=== PATIENT | female | born 1980 | race Caucasian/White ===

== ENCOUNTER → 2016-06-08 | Outpatient (CLI) | payer OTHER ==
[2016-06-08 11:14] LABS: CH 29.5; CHCM 34.1; HCT 37.7 % (34.0-46.0); HDW 2.48; HGB 12.5 gm/dL (11.4-16.0); MCH 28.8 pg (25.0-35.0); MCHC 33.2 g/dL (31.0-37.0); Mean Platelet Volume 6.5; RBC 4.34 m/uL (3.80-5.40); RDW 14.1 % (11.5-15.5); WBC 13.1 k/uL (3.8-10.6)
[2016-06-08 11:26] LABS: ALT 28 U/L (9-52); AST 16 U/L (14-36); Blood Urea Nitrogen 4 mg/dL (7-17); Non-African American GFR(MDRD) >60 (>60 ml/min/1.73 sqM)
[2016-06-11 09:41] LABS: Mis test requested (Non-blood) TP Urine 24Hr
== END | disposition home or self-care (01) ==
LOC: LABWHC1 10:14
PROVIDERS: ATTEND Obstetrics & Gynecology
DX: O13.4 Gestational [pregnancy-induced] hypertension without significant proteinuria, complicating childbirth (principal); Z3A.00 Weeks of gestation of pregnancy not specified
CPT/HCPCS: 36415; 81050; 82565; 82570; 84156; 84450; 84460; 84520; 85027

== ENCOUNTER → 2017-03-13 | Outpatient (CLI) | payer OTHER | LOC: LABWHC1 09:18 | PROVIDERS: ATTEND Surgery | DX: E04.1 Nontoxic single thyroid nodule (principal) | CPT/HCPCS: 36415; 84439; 84443; 84481 ==

== ENCOUNTER 2017-10-25 15:04 | Observation (INO) | payer BC, OTHER ==
[2017-10-25] MEDS ORDERED: AMPICILLIN-SULBACTAM 3 GM in SODIUM CHLORIDE 0.9% 100 ML IVPB STA (16:27)
[2017-10-25] MEDS: SODIUM CHLORIDE 0.9% 500 ML IV SCH ×2 (16:38→18:38)
[2017-10-25 16:53] LABS: Basophils % (A) 0 %; Eosinophils % (A) 0 %; HCT 41.2 % (34.0-46.0); HGB 14.1 gm/dL (11.4-16.0); Lymphocytes # (A) 1.7 k/uL (1.0-4.8); Lymphocytes % (A) 9 %; MCH 29.2 pg (25.0-35.0); MCHC 34.2 g/dL (31.0-37.0); MCV 85.2 fL (80.0-100.0); Mean Platelet Volume 6.6; Monocytes # (A) 0.6 k/uL (0-1.0); Monocytes % (A) 3 %; Neutrophils # (A) 15.9 k/uL (1.3-7.7); Neutrophils % (A) 87 %; Platelet Count 343 k/uL (150-450); RBC 4.84 m/uL (3.80-5.40); RDW 13.6 % (11.5-15.5); WBC 18.4 k/uL (3.8-10.6)
[2017-10-25 16:56] LABS: Partial Thromboplastin Time 24.5 sec (22.0-30.0); Prothrombin Time 9.6 sec (9.0-12.0)
[2017-10-25 17:02] LABS: ALT 26 U/L (9-52); AST 21 U/L (14-36); Albumin 3.7 g/dL (3.5-5.0); Alkaline Phosphatase 79 U/L (38-126); Anion Gap 9 mmol/L; Blood Urea Nitrogen 9 mg/dL (7-17); Calcium 8.9 mg/dL (8.4-10.2); Carbon Dioxide 23 mmol/L (22-30); Chloride 106 mmol/L (98-107); Glucose 94 mg/dL (74-99); Potassium 3.8 mmol/L (3.5-5.1); Sodium 138 mmol/L (137-145); Total Bilirubin 0.3 mg/dL (0.2-1.3); Total Protein 6.4 g/dL (6.3-8.2)
--- NOTE | 2017-10-25 17:02 | ED ---
General Adult HPI - General Chief complaint: Recheck/Abnormal Lab/Rx Stated complaint: Sent by PCP left facial swelling Time Seen by Provider: 10/25/17 15:54 Source: patient, RN notes reviewed, old records reviewed Mode of arrival: ambulatory Limitations: no limitations - History of Present Illness Initial comments: Personal female presents in his room with facial pain and swelling of the left side of face started 4 days ago. It got acutely worse yesterday. Said this happened before with a history of parotid stones. Patient was sent over here from her doctor for further evaluation and computed tomography scan. She reports chills. No specific fever. - Related Data Home Medications Medication Instructions Recorded Confirmed Acetaminophen [Tylenol Extra 1,000 mg PO BID PRN 10/25/17 10/25/17 Strength] Allergies Allergy/AdvReac Type Severity Reaction Status Date / Time No Known Allergies Allergy Verified 10/25/17 16:12 Review of Systems ROS Statement: Those systems with pertinent positive or pertinent negative responses have been documented in the HPI. ROS Other: All systems not noted in ROS Statement are negative. Past Medical History Past Medical History: Thyroid Disorder Additional Past Medical History / Comment(s): parietal stones History of Any Multi-Drug Resistant Organisms: None Reported Past Surgical History: Section, Cholecystectomy Additional Past Surgical History / Comment(s): ectopic Past Anesthesia/Blood Transfusion Reactions: No Reported Reaction Additional Past Anesthesia/Blood Transfusion Reaction / Comment(s): No issues, has had blood transfusion previously Past Psychological History: No Psychological Hx Reported Smoking Status: Current every day smoker Past Alcohol Use History: None Reported Past Drug Use History: None Reported - Past Family History Sister(s) Family Medical History: Cancer Additional Family Medical History / Comment(s): cervical General Exam - General Exam Comments Initial Comments: 37-year-old female. Limitations: no limitations General appearance: alert, in no apparent distress Head exam: Present: atraumatic, normocephalic, normal inspection Eye exam: Present: normal appearance, PERRL, EOMI. Absent: scleral icterus, conjunctival injection, periorbital swelling ENT exam: Present: normal exam, mucous membranes moist, TM's normal bilaterally. Absent: normal oropharynx, other (Patient has significant swelling over the anterior triangle tenderness palpation over the parotid.) Neck exam: Present: normal inspection. Absent: tenderness, meningismus, lymphadenopathy Respiratory exam: Present: normal lung sounds bilaterally. Absent: respiratory distress, wheezes, rales, rhonchi, stridor Cardiovascular Exam: Present: regular rate, normal rhythm, normal heart sounds. Absent: systolic murmur, diastolic murmur, rubs, gallop, clicks GI/Abdominal exam: Present: soft, normal bowel sounds. Absent: distended, tenderness, guarding, rebound, rigid Extremities exam: Present: normal inspection, full ROM, normal capillary refill. Absent: tenderness, pedal edema, joint swelling, calf tenderness Back exam: Present: normal inspection Neurological exam: Present: alert, oriented X3, CN II-XII intact Psychiatric exam: Present: normal affect, normal mood Skin exam: Present: warm, dry, intact, normal color. Absent: rash Course Vital Signs 10/25/17 15:19 Temperature 98.7 F Pulse Rate 88 Respiratory 20 Rate Blood Pressure 141/88 O2 Sat by Pulse 98 Oximetry Medical Decision Making - Medical Decision Making 77-year-old female with significant left-sided facial swelling. Reports chills. Acutely worse in the past 24 hours. I did do a CT of the neck with contrast. Significant inflammation of the parotid gland with surrounding adenopathy. Lab work shows elevated white blood cell count of 18,000. She has been afebrile emergency department. Does report chills. Patient's blood cultures are pending. I started the Patient on Unasyn. I discussed case with Maurizio Gorman NP who accepts the admission. Consults the principal research economist. Patient agrees to admission. - Lab Data Result diagrams: 10/25/17 16:24 10/25/17 16:24 Lab Results 10/25/17 10/25/17 10/25/17 Range/Units 16:24 16:24 16:24 WBC 18.4 H (3.8-10.6) k/uL RBC 4.84 (3.80-5.40) m/uL Hgb 14.1 (11.4-16.0) gm/dL Hct 41.2 (34.0-46.0) % MCV 85.2 (80.0-100.0) fL MCH 29.2 (25.0-35.0) pg MCHC 34.2 (31.0-37.0) g/dL RDW 13.6 (11.5-15.5) % Plt Count 343 (150-450) k/uL Neutrophils % 87 % Lymphocytes % 9 % Monocytes % 3 % Eosinophils % 0 % Basophils % 0 % Neutrophils # 15.9 H (1.3-7.7) k/uL Lymphocytes # 1.7 (1.0-4.8) k/uL Monocytes # 0.6 (0-1.0) k/uL Eosinophils # 0.0 (0-0.7) k/uL Basophils # 0.0 (0-0.2) k/uL PT (9.0-12.0) sec INR (<1.2) APTT (22.0-30.0) sec Sodium 138 (137-145) mmol/L Potassium 3.8 (3.5-5.1) mmol/L Chloride 106 (98-107) mmol/L Carbon Dioxide 23 (22-30) mmol/L Anion Gap 9 mmol/L BUN 9 (7-17) mg/dL Creatinine 0.50 L (0.52-1.04) mg/dL Est GFR (CKD-EPI)AfAm >90 (>60 ml/min/1.73 sqM) Est GFR (CKD-EPI)NonAf >90 (>60 ml/min/1.73 sqM) Glucose 94 (74-99) mg/dL Plasma Lactic Acid Brian 0.8 (0.7-2.0) mmol/L Calcium 8.9 (8.4-10.2) mg/dL Total Bilirubin 0.3 (0.2-1.3) mg/dL AST 21 (14-36) U/L ALT 26 (9-52) U/L Alkaline Phosphatase 79 (38-126) U/L Total Protein 6.4 (6.3-8.2) g/dL Albumin 3.7 (3.5-5.0) g/dL 10/25/17 Range/Units 16:24 WBC (3.8-10.6) k/uL RBC (3.80-5.40) m/uL Hgb (11.4-16.0) gm/dL Hct (34.0-46.0) % MCV (80.0-100.0) fL MCH (25.0-35.0) pg MCHC (31.0-37.0) g/dL RDW (11.5-15.5) % Plt Count (150-450) k/uL Neutrophils % % Lymphocytes % % Monocytes % % Eosinophils % % Basophils % % Neutrophils # (1.3-7.7) k/uL Lymphocytes # (1.0-4.8) k/uL Monocytes # (0-1.0) k/uL Eosinophils # (0-0.7) k/uL Basophils # (0-0.2) k/uL PT 9.6 (9.0-12.0) sec INR 1.0 (<1.2) APTT 24.5 (22.0-30.0) sec Sodium (137-145) mmol/L Potassium (3.5-5.1) mmol/L Chloride (98-107) mmol/L Carbon Dioxide (22-30) mmol/L Anion Gap mmol/L BUN (7-17) mg/dL Creatinine (0.52-1.04) mg/dL Est GFR (CKD-EPI)AfAm (>60 ml/min/1.73 sqM) Est GFR (CKD-EPI)NonAf (>60 ml/min/1.73 sqM) Glucose (74-99) mg/dL Plasma Lactic Acid Brian (0.7-2.0) mmol/L Calcium (8.4-10.2) mg/dL Total Bilirubin (0.2-1.3) mg/dL AST (14-36) U/L ALT (9-52) U/L Alkaline Phosphatase (38-126) U/L Total Protein (6.3-8.2) g/dL Albumin (3.5-5.0) g/dL - Radiology Data Radiology results: report reviewed Inflammatory changes on left side of the neck with mild enlargement of the left parotid with no discrete masses noted. Consistent with inflammatory process. Anterior posterior cervical adenopathy. Enlargement of the tonsils and adenoids. Parotid changes are new compared old computed tomography scan. This enlargement of the tonsils and adenoids. Parotid changes are new compared old CT. Clearing of inflammatory changes on the right side of the face compared to the old exam. Cervical adenopathy appears made to try no similar to old exam. Tonsils and adenoids appear stable. Disposition Clinical Impression: Parotitis Disposition: ADMITTED IP TO THIS [facility] Condition: Stable Is patient prescribed a controlled substance at d/c from ED?: No When asked, does pt state using other controlled substances?: No If prescribed controlled substance>3 days was MAPS reviewed?: No If opioid is for acute pain is fill amount 7 days or less?: No If Rx opioid, was Start Talking consent form obtained?: No Time of Disposition: 17:52
--- NOTE | 2017-10-25 17:34 | CT ---
EXAMINATION TYPE: CT soft tissue neck w con DATE OF EXAM: 10/25/2017 5:06 PM COMPARISON: 11/28/2015 HISTORY: Right side facial swelling and pain x3 days. CT DLP: 1068 mGycm Automated exposure control for dose reduction was used. CONTRAST: CT scan of the neck is performed following with IV Contrast, patient injected with 100ml mL of Isovue 300. Axial images are obtained, coronal and sagittal reformatted images are reviewed. FINDINGS: There is subcutaneous edema on the left side of the neck. There is asymmetric enlargement of the left parotid gland compared to the right. I see no discrete mass. There is mild fat stranding in the fat surrounding the left parotid gland consistent with inflammatory process. There is normal contrast opa cification of carotid arteries and jugular veins. There is bilateral opacification of the vertebral a rteries. The submandibular salivary glands are symmetric. There are multiple enlarged anterior triangle cervic al lymph nodes bilaterally. The largest measures 18 x 18 mm. There are numerous bilateral posterior t riangle cervical lymph nodes that measure up to 12 mm. Epiglottis is normal. There is enlargement of the adenoids that measure 18 mm. There is bilateral enlargement of the tonsils. These measure 3.3 x 1 .2 cm. Subglottic trachea appears normal. IMPRESSION: Inflammatory changes on the left side of the neck with mild enlargement of the left paro tid gland no discrete mass seen. This is consistent with inflammatory process. There is anterior and posterior cervical lymphadenopathy. There is also enlargement of the tonsils and adenoids. Parotid ch anges are new compared to old CT scan. There is clearing of the inflammatory changes on the right brigitte e of the face compared to old exam. Cervical adenopathy appears in the anterior triangle similar to o ld exam. Tonsils and adenoids appear stable compared to old exam.
[2017-10-25] MEDS ORDERED: KETOROLAC 30 MG/ML 1 ML VIAL IVP STA (17:51)
[2017-10-25] MEDS ORDERED: methylPREDNISolone SOD SUCCI 125 MG/2 ML VIAL IV STA (17:51)
[2017-10-25] MEDS ORDERED: ACETAMINOPHEN TAB 325 MG TAB PO PRN (17:52)
[2017-10-25] MEDS ORDERED: LORazepam 2 MG/ML INJ IV PRN (17:52)
[2017-10-25] MEDS ORDERED: ONDANSETRON 4 MG/2 ML VIAL IVP PRN (17:52)
[2017-10-25] MEDS ORDERED: MORPHINE SULFATE 2 MG/ML SYRINGE IV PRN (17:52)
[2017-10-25] MEDS ORDERED: NALOXONE 0.4 MG/ML 1 ML VIAL IV PRN (17:52)
[2017-10-25] MEDS ORDERED: IBUPROFEN 400 MG TAB PO PRN (17:52)
[2017-10-25] MEDS ORDERED: ACETAMINOPHEN TAB 500 MG TAB PO PRN (17:55)
[2017-10-25] MEDS: SODIUM CHLORIDE 0.9% 1,000 ML IV SCH (18:38)
[2017-10-25 20:02] VITALS: BMI 43.5
--- NOTE | 2017-10-25 21:50 | HP ---
HISTORY AND PHYSICAL DATE OF SERVICE: 10/25/2017. CHIEF COMPLAINT: Pain and swelling of the left jaw area. HISTORY OF PRESENT ILLNESS: I am covering for Dr. Jayme Garcia. This 37-year-old woman with a past medical history of parotitis as well as possibly stones, cholecystectomy, hypothyroidism, history of nicotine dependent being followed by Dr. Jayme Garcia in the outpatient setting also complaining of pain for the last 3-4 days. Subsequently patient noted pain and swelling of the left jaw area which is increasing in intensity. Patient came to [facility], admitted for further evaluation. A CT scan showed left side of the neck with mild enlargement of the left parotid gland without an discrete mass. The patient started on broad-spectrum IV antibiotics and ENT has been consulted as well. There is no history any headache, loss of consciousness, seizures. PAST MEDICAL HISTORY: Previous parotitis, stones, cholecystectomy. MEDICATIONS PRIOR TO ADMISSION\: Tylenol p.r.n. ALLERGIES: None. FAMILY HISTORY: History of cervical cancer in the family. SOCIAL HISTORY: History of smoking. No history of alcohol intake. REVIEW OF SYSTEMS: ENT: As mentioned earlier. CARDIOVASCULAR: No angina, palpitations. RESPIRATORY: No cough or hemoptysis. GI: No nausea or vomiting. : No dysuria. NERVOUS: No numbness or weakness. ALLERGY/IMMUNOLOGY: No asthma or hay fever. MUSCULOSKELETAL: As mentioned earlier. HEMATOLOGY/ONCOLOGY: No history of anemia. ENDOCRINE: No history of diabetes, hypothyroidism. CONSTITUTIONAL: As mentioned earlier. DERMATOLOGY: Negative. RHEUMATOLOGY: Negative. PSYCHIATRY: As mentioned earlier. PHYSICAL EXAMINATION: Alert and oriented x3. Pulse 84, blood pressure 129/81, respirations 18, temperature 98.4, pulse ox 96% on room air. HEENT: Conjunctivae normal. Oral mucosa moist. Significant pain and swelling of the left parotid gland. There are some lymph nodes also possibly present. No fluctuation. No erythema noted. NECK: No jugular venous distention. No carotid bruits. No lymph node enlargement. CARDIOVASCULAR: S1, S2 muffled. No S3, S4. RESPIRATORY: Breath sounds diminished in the bases. No rhonchi. No crackles. ABDOMEN: Soft, nontender. No mass palpable. LEGS: No edema. No swelling. NERVOUS SYSTEM: Higher functions as mentioned earlier. Moves all 4 limbs. No focal motor or sensory deficits. LYMPHATIC: No lymphadenopathy in neck or axillae. SKIN: No ulcer, rash or bleeding. JOINTS: No acute deforming arthropathy. LABS: WBC 18.4. Creatinine 0.50. ASSESSMENT: 1. Acute left parotitis, possibly secondary to parotid salivary stones. 2. Hypothyroidism. 3. Previous history of parotitis. 4. Cholecystectomy. 5. History of nicotine dependence. RECOMMENDATIONS AND DISCUSSION: In this 37-year-old woman who presented with multiple complex medical issues, will monitor the patient closely. Continue the current medical management and symptomatic treatment. Otherwise, broad-spectrum IV antibiotics, ENT evaluation. DVT prophylaxis. Repeat labs. Cultures also will be obtained. The overall prognosis guarded because of multiple complex medical issues and discussed with the patient and copy of this dictation will be forwarded to Dr. Garcia, who is the primary physician. ZEESHAN / ADRIAN: [id number] / MTDD
[2017-10-26] MEDS: HEPARIN SODIUM,PORCINE 5,000 UNIT/ML 1 ML VIAL SQ SCH ×2 (00:25→11:56)
[2017-10-26] MEDS: AMPICILLIN-SULBACTAM 3 GM in SODIUM CHLORIDE 0.9% 100 ML IVPB SCH ×4 (00:25→17:59)
[2017-10-26] MEDS: KETOROLAC 30 MG/ML 1 ML VIAL IVP PRN ×3 (00:26→13:07)
[2017-10-26] MEDS: SODIUM CHLORIDE 0.9% 1,000 ML IV SCH ×2 (03:47→13:08)
[2017-10-26 07:32] LABS: Basophils % (A) 0 %; Eosinophils % (A) 0 %; HCT 40.6 % (34.0-46.0); HGB 13.3 gm/dL (11.4-16.0); Lymphocytes # (A) 1.6 k/uL (1.0-4.8); Lymphocytes % (A) 9 %; MCH 28.5 pg (25.0-35.0); MCHC 32.8 g/dL (31.0-37.0); MCV 86.8 fL (80.0-100.0); Mean Platelet Volume 6.7; Monocytes # (A) 0.2 k/uL (0-1.0); Monocytes % (A) 1 %; Neutrophils # (A) 15.5 k/uL (1.3-7.7); Neutrophils % (A) 89 %; Platelet Count 331 k/uL (150-450); RBC 4.67 m/uL (3.80-5.40); RDW 13.4 % (11.5-15.5); WBC 17.4 k/uL (3.8-10.6)
[2017-10-26 07:53] LABS: Anion Gap 11 mmol/L; Blood Urea Nitrogen 9 mg/dL (7-17); Calcium 8.9 mg/dL (8.4-10.2); Carbon Dioxide 20 mmol/L (22-30); Chloride 109 mmol/L (98-107); Glucose 114 mg/dL (74-99); Potassium 3.8 mmol/L (3.5-5.1); Sodium 140 mmol/L (137-145)
--- NOTE | 2017-10-26 08:24 | CONS ---
CONSULTATION REASON FOR CONSULTATION: Left parotitis. HISTORY: This is a 37-year-old white female who has an approximate 4-day history of progressively enlarging left parotid gland with facial swelling and pain. She was seen at her primary care physician's office yesterday and sent to the ER for further evaluation and treatment. She has had parotitis twice previously in 2016, which required a short course of IV antibiotic and oral antibiotics and was felt to be associated with parotid stones and also about a year ago, but due to the fact that she was at that time did not have any treatment and this resolved spontaneously with supportive care only. She had CT scan yesterday which showed diffuse parotid swelling, but no calculus noted. She has not had swelling with eating or drinking, but just persistent swelling. She was placed on Unasyn last night and has improved overnight symptomatically already. She slept well and is not requiring pain medication at least this morning yet. She has had no fever or chills at home. PAST MEDICAL HISTORY: Is as above as well as history of hypothyroidism. PAST SURGICAL HISTORY: A section. Cholecystectomy. SOCIAL HISTORY: Does smoke and does not drink alcohol. ALLERGIES: No known drug allergies. MEDICATIONS: At home is Tylenol. FAMILY HISTORY: Noncontributory. REVIEW OF SYMPTOMS: Review of systems noncontributory other than as above. PHYSICAL EXAM: GENERAL: Well-developed adult white female in no acute distress. She is awake and oriented x3. Does not appear to be in any particular discomfort this morning. VITAL SIGNS: She is afebrile. Vital signs otherwise unremarkable and within normal limits. HEENT: Head is normocephalic and atraumatic. Ears: Canals are clear. Tympanic membranes unremarkable mobile. Nose shows no drainage or obstruction. Mouth and throat shows no trismus. No abnormal masses or lesions. Salivary flow is decreased from the left Stensen's duct but is still present. There is no purulence. No palpable lesions intraorally including with bimanual palpation. NECK: Supple. There is diffuse moderate left parotid swelling with no overlying erythema. It is tender mildly to moderately. There is no fluctuance. Neck otherwise shows no adenopathy palpable. ASSESSMENT: Left parotid parotitis. PLAN: Patient appears to be responding already to the Unasyn. Therefore, we will continue this antibiotic. This is a good empiric choice generally. Continue IV fluids and increase hydration. Once the patient has improved, more so, possibly by tomorrow, could be potentially discharged on oral antibiotics such as in the form of Augmentin. Encourage the patient to have better hydration at home to try to prevent this. It does not appear to be obstructive in nature at this point with no calculus noted on CT scan. The patient has had this recurrently and therefore could consider sialogram once she has improved, although there would be some risk of exacerbating this also. I reviewed this with her today. She will follow up otherwise as needed. If there are questions or concerns, please free to contact me. 30 minutes spent on consultation with the majority of this in counseling. MMODL / IJN: [id number] /
[2017-10-26] MEDS: NICOTINE 14MG/24HR PATCH TRANSDERM SCH (09:40)
[2017-10-26] MEDS: PANTOPRAZOLE 40 MG/10 ML VIAL IV SCH (09:40)
[2017-10-26 13:56] LABS: Appearance,Urine Cloudy (Clear); Bacteria,Urine Rare /hpf; Bilirubin,Urine Negative (Negative); Blood,Urine Negative (Negative); Color,Urine Yellow; Glucose,Urine (UA) Negative (Negative); Ketones,Urine Trace (Negative); Leukocyte Esterase,Urine Negative (Negative); Mucus,Urine Rare /hpf; Nitrite,Urine Negative (Negative); Protein,Urine Trace (Negative); RBC,Urine 1 /hpf (0-5); Specific Gravity,Urine 1.027 (1.001-1.035); Squamous Epithelial Cell,Urine 9 /hpf (0-4); Urobilinogen,Urine <2.0 mg/dL (<2.0); WBC,Urine 1 /hpf (0-5)
--- NOTE | 2017-10-26 18:36 | PN ---
PROGRESS NOTE DATE OF SERVICE: 10/26/2017. INTERVAL HISTORY: This 35-year-old woman was admitted with left parotitis and parotid enlargement , severe pain, is being closely monitored. Patient is on IV antibiotics. ENT is following the patient closely. No chest pain. No palpitations. No fever. No shortness of breath. EXAM: Alert oriented x3. Pulse is 80, blood pressure is 137/80, respirations 18, temperature 97.1, pulse ox 94% room air. HEENT: Conjunctivae normal. NECK: No jugular venous distention. CARDIOVASCULAR: S1, S2 muffled. RESPIRATORY: Breath sounds diminished in the bases. No rhonchi. No crackles. ABDOMEN: Soft, nontender. LEGS: No edema. No swelling. NERVOUS SYSTEM: Nonfocal. LEFT CHEEK: Parotid gland enlargement with tenderness present, less than yesterday. Lymph node enlargement also present. LABS: WBC 17.4. ASSESSMENT: 1. Acute left parotitis, possibly secondary to parotid stones. 2. Hypothyroid. 3. Previous history of parotitis. 4. Cholecystectomy. 5. History nicotine dependence. 6. Increased WBC. RECOMMENDATION AND DISCUSSION: Recommend to continue current medical management and continue symptomatic treatment. Continue with the IV antibiotics. Closely monitor. Further recommendations to follow. MMODL / IJN: [id number] / MTDD
[2017-10-27] MEDS: HEPARIN SODIUM,PORCINE 5,000 UNIT/ML 1 ML VIAL SQ SCH ×3 (00:09→12:41)
[2017-10-27] MEDS: AMPICILLIN-SULBACTAM 3 GM in SODIUM CHLORIDE 0.9% 100 ML IVPB SCH ×3 (00:09→12:18)
[2017-10-27] MEDS: SODIUM CHLORIDE 0.9% 1,000 ML IV SCH ×2 (06:23→06:24)
[2017-10-27 06:51] LABS: Basophils % (A) 0 %; Eosinophils # (A) 0.1 k/uL (0-0.7); Eosinophils % (A) 1 %; HCT 34.1 % (34.0-46.0); HGB 11.4 gm/dL (11.4-16.0); Lymphocytes # (A) 4.2 k/uL (1.0-4.8); Lymphocytes % (A) 37 %; MCH 29.1 pg (25.0-35.0); MCHC 33.6 g/dL (31.0-37.0); MCV 86.6 fL (80.0-100.0); Mean Platelet Volume 6.7; Monocytes # (A) 0.3 k/uL (0-1.0); Monocytes % (A) 3 %; Neutrophils # (A) 6.7 k/uL (1.3-7.7); Neutrophils % (A) 58 %; Platelet Count 328 k/uL (150-450); RBC 3.93 m/uL (3.80-5.40); RDW 13.6 % (11.5-15.5); WBC 11.5 k/uL (3.8-10.6)
[2017-10-27 07:09] LABS: Anion Gap 8 mmol/L; Blood Urea Nitrogen 14 mg/dL (7-17); Calcium 8.1 mg/dL (8.4-10.2); Carbon Dioxide 22 mmol/L (22-30); Chloride 112 mmol/L (98-107); Glucose 90 mg/dL (74-99); Potassium 3.5 mmol/L (3.5-5.1); Sodium 142 mmol/L (137-145)
[2017-10-27] MEDS: PANTOPRAZOLE 40 MG/10 ML VIAL IV SCH (09:00)
[2017-10-27] MEDS: NICOTINE 14MG/24HR PATCH TRANSDERM SCH (09:01)
[2017-10-27 10:05] VITALS: BP 124/82; PULSE 59; RESP 18
[2017-10-27 14:53] VITALS: TEMP 97.3
--- NOTE | 2017-10-28 00:37 | DS ---
DISCHARGE SUMMARY FINAL DIAGNOSES: 1. Acute left parotitis without any evidence of abscess, possibly secondary to parotid stones. 2. Hypothyroidism. 3. Previous history of parotitis. 4. Cholecystectomy history. 5. History of nicotine dependence. 6. Increased WBC. DISCHARGE DISPOSITION: The patient will be discharged in stable condition with guarded prognosis. ENT cleared the patient for discharge. HISTORY OF PRESENT ILLNESS: This 37 -year-old woman with past medical history of multiple medical problems presented with left parotid swelling and. The patient treated with IV antibiotics. There is no evidence of abscess on the CT scan. ENT Dr. Pedersen saw the patient. Patient improved significantly. White count improved to 11.5. The patient will be discharged in stable condition with guarded prognosis. PHYSICAL EXAMINATION: On exam, vital signs stable. Cardiovascular: S1, S2. Abdomen soft. Nervous system: No focal deficits. Minimal parotid enlargement and tenderness in the left parotid area present. DISCHARGE MEDICATIONS AND INSTRUCTIONS: 1. Discharge diet is cardiac diet. 2. Activity limited until followup. 3. Follow up with Dr. Jayme Garcia in 1-2 days. 4. Follow up with the ENT as recommended. MEDICATIONS ARE: 1. Tylenol p.r.n. 2. Augmentin 875 mg p.o. b.i.d. for 7 days. 3. Motrin 400 q.6h p.r.n. 4. Multivitamins 1 p.o. daily. MMODL / IJN: [id number] / MTDD
== END 2017-10-27 15:49 | disposition home or self-care (01) ==
LOC: EC 15:04 → 6PED 17:52
PROVIDERS: ADMIT Hospitalist; ATTEND Hospitalist
DX: K11.21 Acute sialoadenitis (principal); R59.0 Localized enlarged lymph nodes; D72.829 Elevated white blood cell count, unspecified; F17.200 Nicotine dependence, unspecified, uncomplicated; E03.9 Hypothyroidism, unspecified; Z90.49 Acquired absence of other specified parts of digestive tract; Z80.49 Family history of malignant neoplasm of other genital organs
CPT/HCPCS: 99285 ×2; 96365 ×2; 96366 ×4; 96375 ×4; 96372 ×2; 96376 ×2; 36415; 80053; 80048 ×2; 83605; 85025 ×3; 85610; 85730; 81001; 87040; 70491; G0378 ×3; S4990 ×2; J1644 ×2; J2930; J1885 ×2; J0295 ×3; C9113 ×2; Q9967

== ENCOUNTER → 2017-10-28 | Outpatient (CLI) | payer BC ==
[2017-10-28 13:50] LABS: Basophils # (A) 0.1 k/uL (0-0.2); Basophils % (A) 1 %; Eosinophils # (A) 0.1 k/uL (0-0.7); Eosinophils % (A) 1 %; HCT 39.2 % (34.0-46.0); HGB 12.8 gm/dL (11.4-16.0); Lymphocytes # (A) 3.1 k/uL (1.0-4.8); Lymphocytes % (A) 30 %; MCH 27.8 pg (25.0-35.0); MCHC 32.6 g/dL (31.0-37.0); MCV 85.3 fL (80.0-100.0); Mean Platelet Volume 6.4; Monocytes # (A) 0.4 k/uL (0-1.0); Monocytes % (A) 4 %; Neutrophils # (A) 6.3 k/uL (1.3-7.7); Neutrophils % (A) 63 %; Platelet Count 430 k/uL (150-450); RBC 4.59 m/uL (3.80-5.40); RDW 13.5 % (11.5-15.5); WBC 10.1 k/uL (3.8-10.6)
[2017-10-28 13:57] LABS: Anion Gap 8 mmol/L; Blood Urea Nitrogen 8 mg/dL (7-17); Calcium 9.2 mg/dL (8.4-10.2); Carbon Dioxide 26 mmol/L (22-30); Chloride 106 mmol/L (98-107); Glucose 94 mg/dL (74-99); Potassium 3.7 mmol/L (3.5-5.1); Sodium 140 mmol/L (137-145)
== END | disposition home or self-care (01) ==
LOC: LABWHC1 13:03
PROVIDERS: ATTEND Hospitalist
DX: K11.20 Sialoadenitis, unspecified (principal)
CPT/HCPCS: 36415; 80048; 85025

== ENCOUNTER → 2019-02-05 | Outpatient (CLI) | payer OTHER ==
--- NOTE | 2019-02-05 11:24 | XR ---
EXAMINATION TYPE: XR knee limited RT DATE OF EXAM: 02/05/2019 COMPARISON: NONE HISTORY: Pain TECHNIQUE: Two views are submitted. FINDINGS: Small suprapatellar bursal fluid collection. There is arthropathy of the knee joint. No erosive velasquez es.. Osseous structures are intact. No acute fracture seen. IMPRESSION: 1. No acute fracture or dislocation. There is a sizable suprapatellar joint effusion which could be associated with internal derangement recommend follow-up MRI. 2 arthropathy
== END | disposition home or self-care (01) ==
LOC: RADXRMAIN 10:48
PROVIDERS: ATTEND Family Medicine
DX: M25.569 Pain in unspecified knee (principal); M17.11 Unilateral primary osteoarthritis, right knee

== ENCOUNTER → 2020-07-20 | Outpatient (CLI) | payer OTHER ==
[2020-07-20 13:19] VITALS: BP 157/87; PULSE 83; RESP 18; TEMP 98.4
--- NOTE | 2020-07-20 13:59 | P.GSHP ---
History of Present Illness H&P Date: 07/20/20 Chief Complaint: abscess right breast Dali is a 40 year old white female seen in consultation for Dr. Jayme Garcia regarding a right breast abscess. This located near the nipple at areolar complex. It has been present for approximately a year. It has been fluctuating for the last year. She has not had any antibiotic treatment. It drains green/bloody discharge. She has not had any fever associated with it. She did not seek treatment earlier secondary to COVID. She has not noted any lumps masses or nodules in her breast otherwise. She has not had any fever or chills. Approximately 6 years ago she had a similar episode after her left breast which was all spontaneously after approximately 2 months. She has not had any trauma or surgery of her breast. The area of abscess does not fluctuate with her periods. Her last mammogram was approximately 2 and half years ago. Review of mammogram from December 2016 revealed this to be benign BIRADS 2. Office note from [id number] from Renetta Rodriguez reviewed. Caffeine: 2 cups of coffee/day; 2 pops/day Nicotine: Half a pack per day chocolate: occasional hormones: none Family history: maternal grandmother: breast cancer sister: cervical cancer paternal grandmother: skin and brain cancer Hormonal history: Menarche: 12 , 1 ectopic; breast fed: no, age at first : 34 menopause: Periods are regular last menstrual period end of June Surgical History: gallbladder 2 C sections ectopic tubal Medical History: thyroid nodules stones in salivary ducts Social history: Nicotine: Half a pack per day for 22 years Alcohol: Negative Drugs: Negative - Constitutional Constitutional: Denies chills, Denies fever - EENT Eyes: denies blurred vision, denies pain Ears: deny: decreased hearing, tinnitus Ears, nose, mouth and throat: Denies headache, Denies sore throat - Breasts Breasts: bilateral: as per HPI - Cardiovascular Cardiovascular: Denies chest pain, Denies shortness of breath - Respiratory Respiratory: Denies cough, Denies 7 - Gastrointestinal Gastrointestinal: Reports diarrhea, Denies abdominal pain, Denies nausea, Denies vomiting - Genitourinary (Female) Genitourinary: Denies dysuria, Denies hematuria - Menstruation Menstruation: Reports period normal - Musculoskeletal Musculoskeletal: Denies myalgias - Integumentary Integumentary: Denies pruritus, Denies rash - Neurological Neurological: Reports numbness, Denies weakness - Psychiatric Psychiatric: Denies anxiety, Denies depression - Endocrine Endocrine: Denies fatigue, Denies weight change - Hematologic/Lymphatic Comment: none - Allergic/Immunologic Allergic/Immunologic: Reports seasonal allergies Past Medical History Past Medical History: Thyroid Disorder Additional Past Medical History / Comment(s): parietal stones 10/2017; History of Any Multi-Drug Resistant Organisms: None Reported Past Surgical History: Section, Cholecystectomy, Tubal Ligation Additional Past Surgical History / Comment(s): section 12/21/2014 & 10/02/2016; ectopic 02/2013; Past Anesthesia/Blood Transfusion Reactions: No Reported Reaction Additional Past Anesthesia/Blood Transfusion Reaction / Comment(s): No issues, has had blood transfusion previously; Past Psychological History: No Psychological Hx Reported Smoking Status: Current every day smoker Past Alcohol Use History: None Reported Past Drug Use History: None Reported Additional Drug Use History / Comment(s): smokes 1/2 ppd per pt - Past Family History Sister(s) Family Medical History: Cancer Additional Family Medical History / Comment(s): cervical Mother Family Medical History: No Reported History Additional Family Medical History / Comment(s): maternal grandmother breast cancer; Medications and Allergies Home Medications Medication Instructions Recorded Confirmed Type Acetaminophen [Tylenol Extra 1,000 mg PO BID PRN 10/25/17 07/20/20 History Strength] Multivitamins, Thera [Multivitamin] 1 tab PO HS 07/20/20 07/20/20 History Allergies Allergy/AdvReac Type Severity Reaction Status Date / Time No Known Allergies Allergy Verified 07/20/20 13:11 Surgical - Exam Vital Signs Temp Pulse Resp BP Pulse Ox 98.4 F 83 18 157/87 98 07/20/20 13:12 07/20/20 13:12 07/20/20 13:12 07/20/20 13:12 07/20/20 13:12 BMI 55.9 - General no distress - Eyes normal ocular movement - ENT normal nares, no hearing loss - Neck no masses, trachea midline - Respiratory normal expansion, normal respiratory effort, clear to auscultation - Cardiovascular Rhythm: regular Heart Sounds: normal: S1, S2 - Abdomen Abdomen: soft - Integumentary normal turgor - Neurologic no disoriented, no combative - Musculoskeletal normal gait, normal posture - Psychiatric oriented to time, oriented to person, oriented to place, speech is normal, memory intact breast exam: BRA: sports bra inspection: Bilateral grade 2/3 ptosis Palpation: Right breast: Multiple positional exam fibroglandular/fibrocystic changes, in the 2 o'clock position at the periareolar edge there is approximately a 1 cm area of induration which extends up to the nipple and is crusted over on the skin surface this is the area where the patient has experienced drainage Right axilla: No adenopathy of concern Left breast: Multiple positional exam fibrocystic breast changes, no dominant masses or nodules of concern, in the upper outer quadrant area there is a skin superficial area of inflammation possibly an inflamed hair follicle Left axilla: No adenopathy of concern Results Patient has no recent mammogram results Assessment and Plan Assessment: Impression: 1. Chronic intermittent right breast abscess 2. Fibrocystic breast changes 3. Nicotine dependence 4. BMI 55.9 5. Thyroid nodules 6. Stones and salivary duct Plan: 1. Bilateral mammogram/right breast ultrasound and appointment to follow 2. We will discuss the nicotine relationship between breast abscesses and wound healing/ encouraged to stop smoking 3. excision of infected duct in the operating room 4. Ultrasound of the right breast to evaluate the size of the abscessed area Cc: Dr. Jayme Garcia Risks and benefits of excision of infected duct in the operating room explained with the patient. She is strongly encouraged to stop smoking. She will be seen again following the mammogram and ultrasound. She understands the risks include but are not limited to bleeding, infection, reaction to the anesthetic. Additionally removal of most likely be left open and packed been allowed to heal by secondary intention. She also understands that she may have a recurrent abscess despite this. Number/Complexity of problems: 1. Breast abscess/chronic in nature with it recent flareup 2. Fibrocystic breast disease Amount and complexity of data reviewed: Review of prior external from office of Dr. Jayme Garcia Review of prior unique mammogram test Ordering of mammogram and ultrasound Risk of complications morbidity/mortality Discussion regarding surgery for excision of affected duct with the patient; to be scheduled in the near future
== END ==
LOC: WWCWWP 12:59
PROVIDERS: ATTEND Surgery
DX: N61.1 Abscess of the breast and nipple (principal); N60.11 Diffuse cystic mastopathy of right breast; N60.12 Diffuse cystic mastopathy of left breast; F17.210 Nicotine dependence, cigarettes, uncomplicated; Z68.43 Body mass index [BMI] 50.0-59.9, adult; K11.5 Sialolithiasis; E07.9 Disorder of thyroid, unspecified

== ENCOUNTER → 2020-09-08 | Outpatient (CLI) | payer OTHER ==
--- NOTE | 2020-09-09 10:16 | MM ---
Reason for exam: clinical finding. Last mammogram was performed 12 years and 10 months ago. History: Patient had first child at age 34. Family history of breast cancer in grandmother. Physical Findings: Nurse Summary: 1cm nodule in the right breast at 2 o'clock (nurse davion). [facility] Diagnostic Mammo w CAD NOHEMY Bilateral CC, MLO, and XCCL view(s) were taken. Prior study comparison: December 21, 2018, mammogram. There are scattered fibroglandular densities. There is chronic nodularity in the right breast. There is no discrete abnormality. These results were verbally communicated with the patient and result sheet given to the patient on 09/08/20. ASSESSMENT: Benign, BI-RAD 2 RECOMMENDATION: Routine screening mammogram of both breasts in 1 year.
--- NOTE | 2020-09-09 10:18 | USB ---
Reason for exam: clinical finding. History: Patient had first child at age 34. Family history of breast cancer in grandmother. US Breast Limited RT Technologist: Lona Martinez Right limited breast ultrasound including focal area of concern, retroareolar and axilla demonstrates a 1.5cm superficial, vague, hypoechoic, vascular lesion at 3 o'clock at BB, dermal based at site f prior abscess, possible acute cellulitis. These results were verbally communicated with the patient and result sheet given to the patient on 09/08/20. ASSESSMENT: Probably benign, BI-RAD 3 RECOMMENDATION: Routine screening mammogram of both breasts in 1 year. Manage patient on a clinical basis.
== END | disposition home or self-care (01) ==
LOC: RADMAMWWP 14:10
PROVIDERS: ATTEND Surgery
DX: N63.10 Unspecified lump in the right breast, unspecified quadrant (principal); Z80.3 Family history of malignant neoplasm of breast
CPT/HCPCS: 77066

== ENCOUNTER → 2020-09-15 | Outpatient (CLI) | payer OTHER ==
[2020-09-15 15:33] VITALS: BP 151/90; PULSE 78; RESP 18; TEMP 98.3
--- NOTE | 2020-09-15 16:03 | P.PN ---
Subjective Progress Note Date: 09/15/20 Principal diagnosis: Chronic abscess right breast Dali is a 40 year old white female seen in consultation for Dr. Jayme Garcia regarding a right breast abscess. This located near the nipple at areolar complex. It has been present for approximately a year. It has been fluctuating for the last year. She has not had any antibiotic treatment. It drains green/bloody discharge. She has not had any fever associated with it. She did not seek treatment earlier secondary to COVID. She has not noted any lumps masses or nodules in her breast otherwise. She has not had any fever or chills. Approximately 6 years ago she had a similar episode after her left breast which drained spontaneously after approximately 2 months. She has not had any trauma or surgery of her breast. She ahd a bilateral mammogram on 09-08-20 which was Benign BIRAD 2. On carol same date an ultrasound was done of hte right breast which showed a 1.5 cm superficial lesion at 3 oclock. This was felt to be dermal in origan. Caffeine: 2 cups of coffee/day; 2 pops/day Nicotine: Half a pack per day chocolate: occasional hormones: none Family history: maternal grandmother: breast cancer sister: cervical cancer paternal grandmother: skin and brain cancer Hormonal history: Menarche: 12 , 1 ectopic; breast fed: no, age at first : 34 menopause: Periods are regular last menstrual period end of June Surgical History: gallbladder 2 C sections ectopic tubal Medical History: thyroid nodules stones in salivary ducts Social history: Nicotine: Half a pack per day for 22 years Alcohol: Negative Drugs: Negative - Constitutional Constitutional: Denies chills, Denies fever - EENT Eyes: denies blurred vision, denies pain Ears: deny: decreased hearing, tinnitus Ears, nose, mouth and throat: Denies headache, Denies sore throat - Breasts Breasts: bilateral: as per HPI - Cardiovascular Cardiovascular: Denies chest pain, Denies shortness of breath - Respiratory Respiratory: Denies cough, Denies 7 - Gastrointestinal Gastrointestinal: Reports diarrhea, Denies abdominal pain, Denies nausea, Denies vomiting - Genitourinary (Female) Genitourinary: Denies dysuria, Denies hematuria - Menstruation Menstruation: Reports period normal - Musculoskeletal Musculoskeletal: Denies myalgias - Integumentary Integumentary: Denies pruritus, Denies rash - Neurological Neurological: Reports numbness, Denies weakness - Psychiatric Psychiatric: Denies anxiety, Denies depression - Endocrine Endocrine: Denies fatigue, Denies weight change - Hematologic/Lymphatic Comment: none - Allergic/Immunologic Allergic/Immunologic: Reports seasonal allergies Past Medical History Past Medical History: Thyroid Disorder Additional Past Medical History / Comment(s): parietal stones 10/2017; History of Any Multi-Drug Resistant Organisms: None Reported Past Surgical History: Section, Cholecystectomy, Tubal Ligation Additional Past Surgical History / Comment(s): section 12/21/2014 & 10/02/2016; ectopic 02/2013; Past Anesthesia/Blood Transfusion Reactions: No Reported Reaction Additional Past Anesthesia/Blood Transfusion Reaction / Comment(s): No issues, has had blood transfusion previously; Past Psychological History: No Psychological Hx Reported Smoking Status: Current every day smoker Past Alcohol Use History: None Reported Past Drug Use History: None Reported Additional Drug Use History / Comment(s): smokes 1/2 ppd per pt Objective - Vital Signs Vital signs: Vital Signs Temp 98.3 F 09/15/20 15:31 Pulse 78 09/15/20 15:31 Resp 18 09/15/20 15:31 BP 151/90 09/15/20 15:31 Pulse Ox 97 09/15/20 15:31 Intake & Output 09/14/20 09/15/20 09/15/20 18:59 06:59 18:59 Weight 161.932 kg - Exam BMI 55.9 - Constitutional General appearance: Present: morbidly obese - EENT Eyes: Present: EOMI ENT: Present: hearing grossly normal - Neck Neck: Present: normal ROM - Respiratory Respiratory: bilateral: CTA - Cardiovascular Heart sounds: normal: S1, S2 - Gastrointestinal General gastrointestinal: Present: soft - Integumentary Integumentary: Present: normal turgor - Musculoskeletal Musculoskeletal Comment(s): knees weak - Psychiatric Psychiatric: Present: A&O x's 3, appropriate affect, intact judgment & insight - Additional findings Additional findings: breast exam: BRA: 5X inspection: grade 3 ptosis bilateral Palpation: Right breast: fibrocystic changes, chronic abscess changes periareolar region at 2 to 3:00, no dominant masses or nodules of concern Right axilla: No adenopathy of concern Left breast: Fibrocystic changes, no dominant masses or nodules of concern Left axilla: No adenopathy of concern Assessment and Plan Assessment: Impression: 1. Chronic intermittent right breast abscess 2. Fibrocystic breast changes 3. Nicotine dependence 4. BMI 55.9 5. Thyroid nodules 6. Stones and salivary duct Plan: 1. Again encouraging patient to stop smoking 2. Excision of infected duct and the operating room patient understands that this will most likely be left open and have to heal by secondary intention Risks and benefits of excision of infected duct explained to the patient. She understands and wishes us to be performed. Cc: Dr. Jayme Garcia
== END ==
LOC: WWCWWP 14:53
PROVIDERS: ATTEND Surgery
DX: N61.1 Abscess of the breast and nipple (principal); N60.11 Diffuse cystic mastopathy of right breast; N60.12 Diffuse cystic mastopathy of left breast; F17.210 Nicotine dependence, cigarettes, uncomplicated; K11.5 Sialolithiasis; E07.9 Disorder of thyroid, unspecified; Z68.43 Body mass index [BMI] 50.0-59.9, adult

== ENCOUNTER 2020-09-27 07:19 | Day surgery (SDC) | payer OTHER ==
[2020-09-23 09:16] VITALS: BMI 54.6
[~2020-09-27 07:19] MED LIST: HEPARIN SODIUM,PORCINE/PF 5,000 UNIT/0.5 ML SYRINGE SQ PRN; Pre Op ABX Message 1 EACH MISC MISCELLANE ONE
[2020-09-27] MEDS ORDERED: ONDANSETRON 4 MG/2 ML VIAL IVP ONE (07:33)
[2020-09-27] MEDS ORDERED: DEXAMETHASONE SOD PHOSPHATE 4 MG/ML 1 ML VIAL IV ONE (07:33)
[2020-09-27] MEDS ORDERED: HYDROmorphone 0.5 MG/0.5 ML SYRINGE IVP PRN (07:33)
[2020-09-27] MEDS ORDERED: MIDAZOLAM 2 MG/2 ML VIAL IV PRN (07:33)
[2020-09-27] MEDS ORDERED: LACTATED RINGERS 1,000 ML IV SCH (07:33)
[2020-09-27] MEDS ORDERED: LIDOCAINE 1% (10MG/ML) FOR IV START INTRADERMA PRN (07:33)
[2020-09-27] MEDS ORDERED: fentaNYL (PF) 50 MCG/ML 2 ML AMP ONE (08:38)
[2020-09-27] MEDS ORDERED: LIDOCAINE 1% INJ 10MG/ML (20 ML MDV) ONE (08:38)
[2020-09-27] MEDS ORDERED: HYDROmorphone (PF) 1 MG/ML ONE (08:38)
[2020-09-27] MEDS ORDERED: PROPOFOL 10 MG/ML 20 ML VIAL IV ONE (08:38)
[2020-09-27] MEDS ORDERED: SUCCINYLCHOLINE CHLORIDE 100 MG/5 ML SYR IV ONE (08:38)
[2020-09-27] MEDS ORDERED: MIDAZOLAM 2 MG/2 ML VIAL ONE (08:38)
[2020-09-27] MEDS ORDERED: SODIUM CHLORIDE 0.9% 100 ML with ceFAZolin 2,000 MG IV ONE ×2 (08:51)
[2020-09-27] MEDS ORDERED: LIDOCAINE 1% INJ 10MG/ML (20 ML MDV) SQ ONE (09:20)
--- NOTE | 2020-09-27 09:26 | P.OP ---
Date of Procedure: 09/27/20 Preoperative Diagnosis: Right breast chronic abscess/infected cyst Postoperative Diagnosis: Same Procedure(s) Performed: Excision cystic lesion/incision and drainage chronic abscess Anesthesia: GEOA Surgeon: Francesca Galindo Estimated Blood Loss (ml): 3 IV fluids (ml): 300 Pathology: other (Cystic lesion) Condition: stable Disposition: same day Indications for Procedure: Chronic intermittent infection of cystic lesion/chronic abscess, periareolar area right breast Operative Findings: Cystic lesion periareolar area right breast Description of Procedure: Following induction of anesthesia the right breast was prepped and draped in a sterile fashion. After o'clock position of the right breast there was a cystic lesion which was indurated and was source of chronic infection. Excision of this area was performed. The area under the nipple was followed in the tract was excised. The wound was well irrigated. After assured that hemostasis was attained the deep tissues were closed using 4-0 Vicryl suture. This is followed by a nylon skin suture except at the lateral part which was left open and packed with iodoform. Cultures aerobic and anaerobic were obtained. All instrument counts were correct at the end of the case. The patient tolerated the procedure in stable condition.
--- NOTE | 2020-09-27 09:28 | P.DS ---
Providers Attending physician: Francesca Galindo Primary care physician: Jayme Garcia Plan - Discharge Summary Discharge Rx Participant: No New Discharge Prescriptions: No Action Acetaminophen [Tylenol Extra Strength] 1,000 mg PO BID PRN PRN Reason: Pain Multivitamins, Thera [Multivitamin] 1 tab PO HS Discharge Medication List Acetaminophen [Tylenol Extra Strength] 1,000 mg PO BID PRN 10/25/17 [History] Multivitamins, Thera [Multivitamin] 1 tab PO HS 07/20/20 [History] Follow up Appointment(s)/Referral(s): Francesca Galindo MD [STAFF PHYSICIAN] - 1 Week Activity/Diet/Wound Care/Special Instructions: do not drive today may shower after 48 hours teach patient wound care Discharge Disposition: HOME SELF-CARE Plan of Treatment: change packing BID and as needed
[2020-09-27 09:37] VITALS: RESP 16; TEMP 97.2
[2020-09-27 10:47] VITALS: PULSE 76
[2020-09-27 11:02] VITALS: BP 122/79
== END 2020-09-27 11:35 | disposition home health service (06) ==
LOC: OR 07:19
PROVIDERS: ATTEND Surgery
DX: N60.01 Solitary cyst of right breast (principal); Z80.3 Family history of malignant neoplasm of breast; Z80.8 Family history of malignant neoplasm of other organs or systems; E04.2 Nontoxic multinodular goiter; F17.210 Nicotine dependence, cigarettes, uncomplicated
CPT/HCPCS: 81025; 88304; 87070; 87205; 87075; 19120; J2250; J1100; J2405; J0690; J2001; J3010; J1170 ×2; J0330; J2704; J1644

== ENCOUNTER → 2020-10-06 | Outpatient (CLI) | payer OTHER ==
[2020-10-06 16:38] VITALS: BP 127/81; PULSE 86; RESP 18; TEMP 97.9
--- NOTE | 2020-10-06 16:52 | P.PN ---
Progress Note - Text Progress Note Date: 10/06/20 Patient is status post excision of an epidermal inclusion cyst on [id number]. The patient is doing well and the area is healing well at this time. Patient had cultures performed. Anaerobic cultures were negative. Her wound showed no PMNs, rare epithelial cells, and few gram-positive cocci. Aerobic wound culture showed moderate normal skin radha. Physical examination: Incision clean and dry wound packed pink granulation tissue noted Plan: 1. Continue present therapy follow-up in 2 weeks CC: Dr. Jayme Garcia
== END ==
LOC: WWCWWP 15:50
PROVIDERS: ATTEND Surgery
DX: Z48.817 Encounter for surgical aftercare following surgery on the skin and subcutaneous tissue (principal); F17.200 Nicotine dependence, unspecified, uncomplicated

== ENCOUNTER → 2020-10-20 | Outpatient (CLI) | payer OTHER ==
--- NOTE | 2020-10-20 16:14 | P.PN ---
Progress Note - Text Progress Note Date: 10/20/20 Dali status post excision of an epidermal inclusion cyst on [id number]. Patient is doing well at this time with no complaints. Physical examination: Incision clean and dry, the very lateral aspect has some mild granulation tissue which is healing well Plan: 1. Continue present therapy follow-up in 1 month 2. Bilateral mammogram September 2021, with appointment at that time Cc: Dr. Jayme Garcia
[2020-10-20 16:26] VITALS: BP 142/79; PULSE 61; RESP 18; TEMP 98.4
== END ==
LOC: WWCWWP 14:52
PROVIDERS: ATTEND Surgery
DX: Z09 Encounter for follow-up examination after completed treatment for conditions other than malignant neoplasm (principal); F17.200 Nicotine dependence, unspecified, uncomplicated

== ENCOUNTER 2021-10-11 14:42 | Emergency (ER) | payer OTHER ==
[2021-10-11 14:47] VITALS: TEMP 98.3
[2021-10-11] MEDS ORDERED: methylPREDNISolone SOD SUCCI 125 MG/2 ML VIAL IV STA (15:31)
[2021-10-11] MEDS ORDERED: BENZOCAINE SPRAY 1 CAN MUCOUS MEM ONE (15:34)
[2021-10-11 15:59] LABS: HCT 47.9 % (34.0-46.0); HGB 15.5 gm/dL (11.4-16.0); MCH 28.2 pg (25.0-35.0); MCHC 32.3 g/dL (31.0-37.0); MCV 87.3 fL (80.0-100.0); Platelet Count 390 k/uL (150-450); RBC 5.48 m/uL (3.80-5.40); RDW 13.5 % (11.5-15.5); WBC 26.1 k/uL (3.8-10.6)
[2021-10-11 16:12] LABS: Potassium 4.1 mmol/L (3.5-5.1)
[2021-10-11 16:13] LABS: ALT 16 U/L (4-34); AST 25 U/L (14-36); African American GFR (CKD) >90 (>60 ml/min/1.73 sqM); Albumin 4.3 g/dL (3.5-5.0); Alkaline Phosphatase 103 U/L (38-126); Anion Gap 13 mmol/L; Blood Urea Nitrogen 17 mg/dL (7-17); Calcium 9.4 mg/dL (8.4-10.2); Carbon Dioxide 23 mmol/L (22-30); Chloride 104 mmol/L (98-107); Glucose 114 mg/dL (74-99); Non-African American GFR(CKD) >90 (>60 ml/min/1.73 sqM); Sodium 140 mmol/L (137-145); Total Bilirubin 0.7 mg/dL (0.2-1.3); Total Protein 7.7 g/dL (6.3-8.2)
--- NOTE | 2021-10-11 16:24 | ED ---
ENT HPI - General Chief complaint: ENT Stated complaint: sorethroat Time Seen by Provider: 10/11/21 14:57 Source: patient Mode of arrival: ambulatory Limitations: no limitations - History of Present Illness Initial comments: Patient is a 41-year-old female presents to the emergency room at the direction of her primary care provider Dr. Garcia who advised her to come here after being seen in the office today for swelling in her throat which has worsened since being on amoxicillin. She reports that she started with a sore throat approximately 4 days ago and symptoms are worsening. She states that she is able to swallow though only in small amounts and is difficult at times. 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 She denies any difficulty in breathing or fevers. She does report excessive sweating. She has a past medical history significant for thyroid nodule and salivary gland stones. She denies any other significant past medical history. - Related Data Home Medications Medication Instructions Recorded Confirmed Acetaminophen [Tylenol Extra 1,000 mg PO BID PRN 10/25/17 10/20/20 Strength] Multivitamins, Thera [Multivitamin] 1 tab PO HS 07/20/20 10/20/20 Previous Rx's Medication Instructions Recorded Amoxic-Pot Clav 875-125Mg 1 tab PO BID 10 Days #20 tab 10/11/21 [Augmentin 875-125] methylPREDNISolone Dose Pack 4 mg PO DIRECTED #21 tab 10/11/21 [Medrol Dose Pack] Allergies Allergy/AdvReac Type Severity Reaction Status Date / Time No Known Allergies Allergy Verified 10/11/21 14:47 Review of Systems ROS Statement: Those systems with pertinent positive or pertinent negative responses have been documented in the HPI. ROS Other: All systems not noted in ROS Statement are negative. Past Medical History Past Medical History: No Reported History Additional Past Medical History / Comment(s): THYROID NODULE, SALIVARY DUCT STONE, History of Any Multi-Drug Resistant Organisms: None Reported Past Surgical History: Section, Cholecystectomy, Tubal Ligation Additional Past Surgical History / Comment(s): section 12/21/2014 & 10/02/2016; ectopic 02/2013; Past Anesthesia/Blood Transfusion Reactions: No Reported Reaction Additional Past Anesthesia/Blood Transfusion Reaction / Comment(s): No issues, has had blood transfusion previously; Past Psychological History: No Psychological Hx Reported Smoking Status: Former smoker Past Alcohol Use History: None Reported Past Drug Use History: None Reported - Past Family History Sister(s) Family Medical History: Cancer Additional Family Medical History / Comment(s): cervical Mother Family Medical History: No Reported History Additional Family Medical History / Comment(s): maternal grandmother breast cancer; General Exam Limitations: no limitations General appearance: alert, in no apparent distress Head exam: Present: atraumatic, normocephalic, normal inspection Eye exam: Present: normal appearance, PERRL, EOMI. Absent: scleral icterus, conjunctival injection, periorbital swelling ENT exam: Present: normal exam, mucous membranes moist Neck exam: Present: normal inspection. Absent: tenderness, meningismus, lymphadenopathy Respiratory exam: Present: normal lung sounds bilaterally. Absent: respiratory distress, wheezes, rales, rhonchi, stridor Cardiovascular Exam: Present: regular rate, normal rhythm, normal heart sounds. Absent: systolic murmur, diastolic murmur, rubs, gallop, clicks GI/Abdominal exam: Present: soft, tenderness (right lower quadrant), normal bowel sounds. Absent: distended, organomegaly, mass Extremities exam: Present: normal inspection, full ROM, normal capillary refill. Absent: tenderness, pedal edema, joint swelling, calf tenderness Back exam: Absent: CVA tenderness (R), CVA tenderness (L) Neurological exam: Present: alert, oriented X3, CN II-XII intact Psychiatric exam: Present: normal affect, normal mood Skin exam: Present: warm, dry, intact, normal color. Absent: rash Course Vital Signs 10/11/21 14:43 Temperature 98.3 F Pulse Rate 108 H Respiratory 20 Rate Blood Pressure 154/88 O2 Sat by Pulse 97 Oximetry Medical Decision Making - Medical Decision Making Case discussed with Dr. Tinajero. Attempted puncture of posterior palate/ right sided peritonsilar region without any drainage. Patient tolerated well with Hurricaine spray. Decrease in swelling noted after dose of Solu-Medrol. Airway but continues to remain patent. Laboratories are stable. Negative for strep, influenza and covid Patient stable for discharge home on oral antibiotics and steroids. - Lab Data Result diagrams: 10/11/21 15:46 10/11/21 15:46 Lab Results 10/11/21 10/11/21 10/11/21 Range/Units 15:04 15:04 15:04 WBC (3.8-10.6) k/uL RBC (3.80-5.40) m/uL Hgb (11.4-16.0) gm/dL Hct (34.0-46.0) % MCV (80.0-100.0) fL MCH (25.0-35.0) pg MCHC (31.0-37.0) g/dL RDW (11.5-15.5) % Plt Count (150-450) k/uL MPV Neutrophils % (Manual) % Band Neuts % (Manual) % Lymphocytes % (Manual) % Monocytes % (Manual) % Basophils % (Manual) % Neutrophils # (Manual) (1.3-7.7) k/uL Lymphocytes # (Manual) (1.0-4.8) k/uL Monocytes # (Manual) (0-1.0) k/uL Basophils # (Manual) (0-0.2) k/uL Nucleated RBCs (0-0) /100 WBC Manual Slide Review RBC Morphology Sodium (137-145) mmol/L Potassium (3.5-5.1) mmol/L Chloride (98-107) mmol/L Carbon Dioxide (22-30) mmol/L Anion Gap mmol/L BUN (7-17) mg/dL Creatinine (0.52-1.04) mg/dL Est GFR (CKD-EPI)AfAm (>60 ml/min/1.73 sqM) Est GFR (CKD-EPI)NonAf (>60 ml/min/1.73 sqM) Glucose (74-99) mg/dL Plasma Lactic Acid Brian (0.7-2.0) mmol/L Calcium (8.4-10.2) mg/dL Total Bilirubin (0.2-1.3) mg/dL AST (14-36) U/L ALT (4-34) U/L Alkaline Phosphatase (38-126) U/L Total Protein (6.3-8.2) g/dL Albumin (3.5-5.0) g/dL Coronavirus (PCR) Not Detected (Not Detectd) Influenza Type A RNA Not Detected (Not Detectd) Influenza Type B (PCR) Not Detected (Not Detectd) Group A Strep Rapid Negative (Negative) 10/11/21 10/11/21 10/11/21 Range/Units 15:46 15:46 15:46 WBC 26.1 H (3.8-10.6) k/uL RBC 5.48 H (3.80-5.40) m/uL Hgb 15.5 (11.4-16.0) gm/dL Hct 47.9 H (34.0-46.0) % MCV 87.3 (80.0-100.0) fL MCH 28.2 (25.0-35.0) pg MCHC 32.3 (31.0-37.0) g/dL RDW 13.5 (11.5-15.5) % Plt Count 390 (150-450) k/uL MPV 7.0 Neutrophils % (Manual) 65 % Band Neuts % (Manual) 5 % Lymphocytes % (Manual) 15 % Monocytes % (Manual) 14 % Basophils % (Manual) 1 % Neutrophils # (Manual) 18.20 H (1.3-7.7) k/uL Lymphocytes # (Manual) 3.92 (1.0-4.8) k/uL Monocytes # (Manual) 3.65 H (0-1.0) k/uL Basophils # (Manual) 0.26 H (0-0.2) k/uL Nucleated RBCs 0 (0-0) /100 WBC Manual Slide Review Performed RBC Morphology Normal Sodium 140 (137-145) mmol/L Potassium 4.1 (3.5-5.1) mmol/L Chloride 104 (98-107) mmol/L Carbon Dioxide 23 (22-30) mmol/L Anion Gap 13 mmol/L BUN 17 (7-17) mg/dL Creatinine 0.76 (0.52-1.04) mg/dL Est GFR (CKD-EPI)AfAm >90 (>60 ml/min/1.73 sqM) Est GFR (CKD-EPI)NonAf >90 (>60 ml/min/1.73 sqM) Glucose 114 H (74-99) mg/dL Plasma Lactic Acid Brian 1.0 (0.7-2.0) mmol/L Calcium 9.4 (8.4-10.2) mg/dL Total Bilirubin 0.7 (0.2-1.3) mg/dL AST 25 (14-36) U/L ALT 16 (4-34) U/L Alkaline Phosphatase 103 (38-126) U/L Total Protein 7.7 (6.3-8.2) g/dL Albumin 4.3 (3.5-5.0) g/dL Coronavirus (PCR) (Not Detectd) Influenza Type A RNA (Not Detectd) Influenza Type B (PCR) (Not Detectd) Group A Strep Rapid (Negative) Disposition Clinical Impression: Peritonsillar abscess Disposition: HOME SELF-CARE Condition: Stable Instructions (If sedation given, give patient instructions): Abscess (ED) Additional Instructions: Please return to the Emergency Department if symptoms worsen or any other co ncerns. Prescriptions: Amoxic-Pot Clav 875-125Mg [Augmentin 875-125] 1 tab PO BID 10 Days #20 tab methylPREDNISolone Dose Pack [Medrol Dose Pack] 4 mg PO DIRECTED #21 tab Is patient prescribed a controlled substance at d/c from ED?: No Referrals: Jayme Garcia MD [Primary Care Provider] - 1-2 days Time of Disposition: 17:22
[2021-10-11] MEDS ORDERED: cefTRIAXone IN SWFI 1,000 MG/10 ML SYRINGE IVP STA (16:26)
[2021-10-11 17:09] LABS: Band Neutrophils % 5 %; Basophils # (M) 0.26 k/uL (0-0.2); Lymphocytes # (M) 3.92 k/uL (1.0-4.8); Monocytes # (M) 3.65 k/uL (0-1.0); Neutrophils % (M) 65 %; Nucleated Red Blood Cells 0 /100 WBC (0-0); Total Cells Counted 100
[2021-10-11 17:10] LABS: RBC Morphology Normal
[2021-10-11 18:58] VITALS: BP 152/92; PULSE 90; RESP 18
== END 2021-10-11 17:53 | disposition home or self-care (01) ==
LOC: EC 14:42
DX: J36 Peritonsillar abscess (principal); Z20.822 Contact with and (suspected) exposure to COVID-19; Z87.891 Personal history of nicotine dependence
CPT/HCPCS: 36415; 80053; 83605; 85025; 87040; 87081; 87430; 87502; 87635; 99283; 96374; 96375; J2930; J0696

== ENCOUNTER → 2022-01-04 | Outpatient (CLI) | payer OTHER ==
--- NOTE | 2022-01-04 12:10 | MM ---
Reason for Exam: Screening (asymptomatic). Last mammogram was performed 1 year(s) and 4 month(s) ago. Patient History: Menarche at age 13. First Full-Term at age 34. Late child-bearing (after 30). Premenopausal. Maternal grandmother had breast cancer. Last menstrual period: 12/18/2021 Risk Values: Dahlia 5 year model risk: 0.8%. NCI Lifetime model risk: 13.5%. Prior Study Comparison: 04/08/2007 Bilateral Diagnostic Mammogram, [facility]. 10/31/2007 Right Diagnostic Mammogram, [facility]. 12/21/2018 Screening Mammogram, Unknown. 09/08/2020 Bilateral Diagnostic Mammogram, [facility]. Tissue Density: There are scattered fibroglandular densities. Findings: Analyzed By CAD. Stable small oval lobulated mass in the right breast posterior slightly upper outer quadrant. There is no suspicious new group of microcalcifications or new suspicious mass in either breast. Overall Assessment: Benign, BI-RAD 2 Management: Screening Mammogram of both breasts in 1 year. A clinical breast exam by your physician is recommended on an annual basis and results should be correlated with mammographic findings. Electronically signed and approved by: Keny Pitts M.D.
--- NOTE | 2022-01-04 12:56 | US ---
EXAMINATION TYPE: US thyroid st tissue head/neck DATE OF EXAM: 01/04/2022 COMPARISON: CT neck October 25, 2017. 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 follow up thyroid nodules. Not on thyroid med s. GLAND SIZE: Right Lobe: 5.1 x 2.0 x 1.7 cm Overall Parenchyma: heterogenous Left Lobe: 4.7 x 1.5 x 1.7 cm Overall Parenchyma: heterogeneous Isthmus Thickness: 0.5 cm NODULES RIGHT: # of nodules measured on right: 3 1. 0.6 X 0.4 x 0.5 cm, upper mid, mixed cystic and solid, hypoechoic nodule, which is taller than w elaine, with smooth margins, with echogenic foci. Prior size: 0.8 x 0.5 x 0.5 cm 2. 1.9 X 1.7 x 1.2 cm, mid/lower mid, solid or almost completely solid, hyperechoic nodule, which i s wider than tall, with lobulated or irregular margins, without echogenic foci. Prior size: 2.0 x 1.6 x 1.0 cm 3. 0.6 X 0.6 x 0.6 cm, lower lateral, mixed cystic and solid, hypoechoic nodule, which is wider usama n tall, with lobulated or irregular margins, with echogenic foci. Prior size: Not imaged LEFT: # of nodules measured on left: 1 1. 1.1 X 0.9 x 0.6 cm, mid medial, cystic or almost completely cystic, anechoic nodule, which is wi savannah than tall, with smooth margins, without echogenic foci. Prior size: no prior ISTHMUS: # of nodules measured in the isthmus: 0 Bilateral neck scanned, no evidence of lymphadenopathy. Heterogeneous normal-sized thyroid with scattered small nodules. Largest in the right thyroid lobe is not significant change from prior. 1.1 cm cystic nodule left thyroid lobe now noted. It is a TR1 le fausto. IMPRESSION: As above. No suspicious new or enlarging greater than 1 cm solid nodules.
[2022-01-04 15:29] LABS: Basophils # (A) 0.05 X 10*3/uL (0.00-0.10); Basophils % (A) 0.5 %; Eosinophils # (A) 0.21 X 10*3/uL (0.04-0.35); Eosinophils % (A) 1.9 %; HCT 42.1 % (37.2-46.3); HGB 13.5 g/dL (12.0-15.0); Immature Grans, Automated 0.4 %; Lymphocytes # (A) 3.21 X 10*3/uL (0.90-5.00); Lymphocytes % (A) 29.7 %; MCH 27.8 pg (27.0-32.0); MCHC 32.1 g/dL (32.0-37.0); MCV 86.8 fL (80.0-97.0); Mean Platelet Volume 9.6 fL (9.5-12.2); Monocytes # (A) 0.74 X 10*3/uL (0.20-1.00); Monocytes % (A) 6.8 %; NRBC Per 100 WBC 0 /100 WBCS (0.0-0.0); Neutrophils # (A) 6.57 X 10*3/uL (1.80-7.70); Neutrophils % (A) 60.7 %; Platelet Count 410 X 10*3/uL (140-440); RBC 4.85 X 10*6/uL (4.10-5.20); RDW 14.4 % (11.5-14.5); WBC 10.82 X 10*3/uL (4.50-10.00)
[2022-01-04 16:41] LABS: ALT <5 U/L (8-44); AST 16 U/L (13-35); African American GFR (CKD) 129.5 (60.0-200.0); Albumin 3.8 g/dL (3.8-4.9); Albumin/Globulin Ratio 1.31 (1.60-3.17); Alkaline Phosphatase 71 U/L (41-126); BUN/Creat Ratio 18.11 Ratio (12.00-20.00); Blood Urea Nitrogen 11.3 mg/dL (9.0-27.0); Calcium 9.1 mg/dL (8.7-10.3); Carbon Dioxide 23.9 mmol/L (20.0-27.5); Chloride 106 mmol/L (96-109); Chol/HDL Ratio 4.25 Ratio; Globulin 2.9 g/dL (1.6-3.3); Glucose 96 mg/dL (70-110); LDL Cholesterol,Calculated 100.4 mg/dL (0.0-131.0); Non-African American GFR(CKD) 111.8 (60.0-200.0); Potassium 4.1 mmol/L (3.5-5.5); Sodium 141 mmol/L (135-145); Total Protein 6.7 g/dL (6.2-8.2)
== END | disposition home or self-care (01) ==
LOC: RADMAMWWP 08:30
PROVIDERS: ATTEND Family Medicine
DX: Z00.00 Encounter for general adult medical examination without abnormal findings (principal); Z12.31 Encounter for screening mammogram for malignant neoplasm of breast; Z11.59 Encounter for screening for other viral diseases; D72.829 Elevated white blood cell count, unspecified; Z80.3 Family history of malignant neoplasm of breast
CPT/HCPCS: 76536; 77067; 80053; 80061; 84439; 84443; 85025; 86803

== ENCOUNTER → 2022-03-09 | Outpatient (CLI) | payer OTHER ==
[2022-03-09 15:33] VITALS: BP 163/103; PULSE 88; RESP 17; TEMP 97.9
--- NOTE | 2022-03-09 15:48 | P.PN ---
Subjective Progress Note Date: 03/09/22 Principal diagnosis: chronic abscess right breast Chronic abscess right breast Dali is a 41 year old white female seen in consultation for Dr. Jayme Garcia regarding a right breast abscess. This located near the nipple at areolar complex. It has been present for approximately a year. It has been fluctuating for the last year. She has not had any antibiotic treatment. It drains green/bloody discharge. She has not had any fever associated with it. She did not seek treatment earlier secondary to COVID. She has not noted any lumps masses or nodules in her breast otherwise. She has not had any fever or chills. Approximately 6 years ago she had a similar episode after her left breast which drained spontaneously after approximately 2 months. She has not had any trauma or surgery of her breast. She ahd a bilateral mammogram on 09-08-20 which was Benign BIRAD 2. On carol same date an ultrasound was done of hte right breast which showed a 1.5 cm superficial lesion at 3 oclock. This was felt to be dermal in origan. 03-09-22 Patient had excision of an epidermal inclusion cyst on 09-27-20. She was last seen here over 1 year ago. At this time she was noted to have an elevated WBC 10.82 states that in the medial aspect of the areolar she has had a pustule which is open in January and in February there since closed. She is not complaining of any fever or chills. She does complain of discomfort at the site of these pustules. 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 ducts Social history: Nicotine: Half a pack per day for 22 years Alcohol: Negative Drugs: Negative - Constitutional Constitutional: Denies chills, Denies fever - EENT Eyes: denies blurred vision, denies pain Ears: deny: decreased hearing, tinnitus Ears, nose, mouth and throat: Denies headache, Denies sore throat - Breasts Breasts: bilateral: as per HPI - Cardiovascular Cardiovascular: Denies chest pain, Denies shortness of breath - Respiratory Respiratory: Denies cough, Denies 7 - Gastrointestinal Gastrointestinal: Reports diarrhea, Denies abdominal pain, Denies nausea, Denies vomiting - Genitourinary (Female) Genitourinary: Denies dysuria, Denies hematuria - Menstruation Menstruation: Reports period normal - Musculoskeletal Musculoskeletal: Denies myalgias - Integumentary Integumentary: Denies pruritus, Denies rash - Neurological Neurological: Reports numbness, Denies weakness - Psychiatric Psychiatric: Denies anxiety, Denies depression - Endocrine Endocrine: Denies fatigue, Denies weight change - Hematologic/Lymphatic Comment: none - Allergic/Immunologic Allergic/Immunologic: Reports seasonal allergies Past Medical History Past Medical History: Thyroid Disorder Additional Past Medical History / Comment(s): parietal stones 10/2017; History of Any Multi-Drug Resistant Organisms: None Reported Past Surgical History: Section, Cholecystectomy, Tubal Ligation Additional Past Surgical History / Comment(s): section 12/21/2014 & 10/02/2016; ectopic 02/2013; Past Anesthesia/Blood Transfusion Reactions: No Reported Reaction Additional Past Anesthesia/Blood Transfusion Reaction / Comment(s): No issues, has had blood transfusion previously; Past Psychological History: No Psychological Hx Reported Smoking Status: Current every day smoker Past Alcohol Use History: None Reported Past Drug Use History: None Reported Additional Drug Use History / Comment(s): smokes 1/2 ppd per pt Objective - Vital Signs Vital signs: Vital Signs Temp 97.9 F 03/09/22 15:30 Pulse 88 03/09/22 15:30 Resp 17 03/09/22 15:30 BP 163/103 03/09/22 15:30 Pulse Ox 98 03/09/22 15:30 FiO2 Intake & Output 03/08/22 03/09/22 03/09/22 18:59 06:59 18:59 Weight 149.232 kg - Constitutional General appearance: Present: cooperative - EENT Eyes: Present: EOMI ENT: Present: hearing grossly normal - Neck Neck: Present: normal ROM - Respiratory Respiratory: bilateral: CTA - Cardiovascular Heart sounds: normal: S1, S2 - Integumentary Integumentary Comment(s): The right periareolar area there is approximately a 6 mm region of scabbing which had opened and drained at this time there is no active infection - Musculoskeletal Musculoskeletal: Present: gait normal - Psychiatric Psychiatric: Present: A&O x's 3, appropriate affect, intact judgment & insight - Additional findings Additional findings: Breast examination: BRA: 4X Inspection: Right breast scab at medial areolar aspect where abscess had drained recently Bilateral grade 2/3 ptosis Palpation: Right Breast: Multiple positional exam right breast no dominant masses or nodules of concern skin changes as noted there is no firmness in the periareolar region where the abscess had previously drained Right axilla: No adenopathy of concern Left breast: Multi-positional exam no dominant masses or nodules of concern Left axilla: No adenopathy of concern Assessment and Plan Assessment: Impression/Plan: Chronic abscess right breast not actively draining at this time review bilateral mammogram done in January 2022 Plan: Keflex 500 mg by mouth 4 times a day #20 Follow-up in 2 weeks We have discussed reexcision of the area in the operating room but at this time would prefer to use antibiotic therapy if possible and avoid another operation Cc: Dr. Jayme Garcia
== END | disposition home or self-care (01) ==
LOC: WWCWWP 15:14
PROVIDERS: ATTEND Surgery
DX: N61.1 Abscess of the breast and nipple (principal)

== ENCOUNTER → 2022-04-13 | Outpatient (CLI) | payer OTHER ==
[2022-04-13 10:24] VITALS: BP 146/94; PULSE 76; RESP 18; TEMP 98.1
--- NOTE | 2022-04-13 10:33 | P.PN ---
Subjective Progress Note Date: 04/13/22 Principal diagnosis: Chronic abscess periareolar region right breast chronic abscess right breast Chronic abscess right breast Dali is a 41 year old white female seen in consultation for Dr. Jayme Garcia regarding a right breast abscess. This located near the nipple at areolar complex. It has been present for approximately a year. It has been fluctuating for the last year. She has not had any antibiotic treatment. It drains green/bloody discharge. She has not had any fever associated with it. She did not seek treatment earlier secondary to COVID. She has not noted any lumps masses or nodules in her breast otherwise. She has not had any fever or chills. Approximately 6 years ago she had a similar episode after her left breast which drained spontaneously after approximately 2 months. She has not had any trauma or surgery of her breast. She ahd a bilateral mammogram on 09-08-20 which was Benign BIRAD 2. On carol same date an ultrasound was done of hte right breast which showed a 1.5 cm superficial lesion at 3 oclock. This was felt to be dermal in origan. 03-09-22 Patient had excision of an epidermal inclusion cyst on 09-27-20. She was last seen here over 1 year ago. At this time she was noted to have an elevated WBC 10.82 states that in the medial aspect of the areolar she has had a pustule which is open in January and in February there since closed. She is not complaining of any fever or chills. She does complain of discomfort at the site of these pustules. 04-13-22 Approximately 2 days ago the patient noted that in the medial periareolar area the area where the epidermal inclusion cyst had been resected became erythematous and began draining. She has not had any fever or chills. She does not note any other lesions in her breast. Bilateral mammogram on 01-04-22 BIRAD 2. 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 ducts Social history: Nicotine: Half a pack per day for 22 years Alcohol: Negative Drugs: Negative - Constitutional Constitutional: Denies chills, Denies fever - EENT Eyes: denies blurred vision, denies pain Ears: deny: decreased hearing, tinnitus Ears, nose, mouth and throat: Denies headache, Denies sore throat - Breasts Breasts: bilateral: as per HPI - Cardiovascular Cardiovascular: Denies chest pain, Denies shortness of breath - Respiratory Respiratory: Denies cough, - Gastrointestinal Gastrointestinal: Reports diarrhea, Denies abdominal pain, Denies nausea, Denies vomiting - Genitourinary (Female) Genitourinary: Denies dysuria, Denies hematuria - Menstruation Menstruation: Reports period normal - Musculoskeletal Musculoskeletal: Denies myalgias - Integumentary Integumentary: Denies pruritus, Denies rash - Neurological Neurological: Reports numbness, Denies weakness - Psychiatric Psychiatric: Denies anxiety, Denies depression - Endocrine Endocrine: Denies fatigue, Denies weight change - Hematologic/Lymphatic Comment: none - Allergic/Immunologic Allergic/Immunologic: Reports seasonal allergies Past Medical History Past Medical History: Thyroid Disorder Additional Past Medical History / Comment(s): parietal stones 10/2017; History of Any Multi-Drug Resistant Organisms: None Reported Past Surgical History: Section, Cholecystectomy, Tubal Ligation Additional Past Surgical History / Comment(s): section 12/21/2014 & 10/02/2016; ectopic 02/2013; Past Anesthesia/Blood Transfusion Reactions: No Reported Reaction Additional Past Anesthesia/Blood Transfusion Reaction / Comment(s): No issues, has had blood transfusion previously; Past Psychological History: No Psychological Hx Reported Smoking Status: Current every day smoker Past Alcohol Use History: None Reported Past Drug Use History: None Reported Additional Drug Use History / Comment(s): smokes 1/2 ppd per pt Objective - Vital Signs Vital signs: Vital Signs Temp 98.1 F 04/13/22 10:20 Pulse 76 04/13/22 10:20 Resp 18 04/13/22 10:20 BP 146/94 04/13/22 10:20 Pulse Ox 99 04/13/22 10:20 FiO2 Intake & Output 04/12/22 04/13/22 04/13/22 18:59 06:59 18:59 Weight 153.768 kg - Constitutional General appearance: Present: cooperative - EENT Eyes: Present: EOMI ENT: Present: hearing grossly normal - Neck Neck: Present: normal ROM - Respiratory Respiratory: bilateral: CTA - Cardiovascular Heart sounds: normal: S1, S2 - Integumentary Integumentary Comment(s): Erythema periareolar area right breast at approximately the 3 o'clock position near site were prior epidermal inclusion cyst was resected approximately a year ago - Musculoskeletal Musculoskeletal: Present: gait normal - Psychiatric Psychiatric: Present: A&O x's 3, appropriate affect, intact judgment & insight - Additional findings Additional findings: Breast Exam: BRA: 4X sports bra inspection: bilateral grade 2/3 ptosis/ erythema 3 o'clock position periareolar region right breast at site of prior excision of epidermal inclusion cyst Palpation: Breasts: In sitting position no dominant masses or nodules of concern, at the 3 o'clock position periareolar area there is some erythema and fullness which appears to be consistent with a chronic abscess Right axilla: No adenopathy of concern Left breast: In sitting position no dominant masses or not his of concern Fibrocystic changes Left axilla: No adenopathy of concern Assessment and Plan Assessment: Impression: thyroid nodules stones in salivary ducts A bell abscess right periareolar area Plan: Wide excision chronic abscess area right periareolar area prior cyst in this region Oral antibiotics prior to this Patient to follow up sooner any questions or concerns Most likely this will be packed and he'll from the inside out the patient understands this Cc: Dr. Garcia
== END ==
LOC: WWCWWP 10:16
PROVIDERS: ATTEND Surgery
DX: N61.1 Abscess of the breast and nipple (principal); E04.2 Nontoxic multinodular goiter; K11.5 Sialolithiasis; F17.200 Nicotine dependence, unspecified, uncomplicated

== ENCOUNTER → 2022-05-18 | Outpatient (CLI) | payer OTHER ==
--- NOTE | 2022-05-18 12:43 | P.PN ---
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 Jayme Garcia regarding a right breast abscess. This located near the nipple at areolar complex. It has been present for approximately a year. It has been fluctuating for the last year. She has not had any antibiotic treatment. It drains green/bloody discharge. She has not had any fever associated with it. She did not seek treatment earlier secondary to COVID. She has not noted any lumps masses or nodules in her breast otherwise. She has not had any fever or chills. Approximately 6 years ago she had a similar episode after her left breast which drained spontaneously after approximately 2 months. She has not had any trauma or surgery of her breast. She ahd a bilateral mammogram on 09-08-20 which was Benign BIRAD 2. On carol same date an ultrasound was done of hte right breast which showed a 1.5 cm superficial lesion at 3 oclock. This was felt to be dermal in origan. 03-09-22 Patient had excision of an epidermal inclusion cyst on 09-27-20. She was last seen here over 1 year ago. At this time she was noted to have an elevated WBC 10.82 states that in the medial aspect of the areolar she has had a pustule which is open in January and in February there since closed. She is not complaining of any fever or chills. She does complain of discomfort at the site of these pustules. 04-13-22 Approximately 2 days ago the patient noted that in the medial periareolar area the area where the epidermal inclusion cyst had been resected became erythematous and began draining. She has not had any fever or chills. She does not note any other lesions in her breast. 05-18-22 Patient OR cancelled secondary to patient having the flu. This was scheduled for 05-08-22. Since that time the area has scabbed over but this is been a chronic problem with intermittent abscess formation. At the present time it is not draining. The patient understands that if we open this area and curettage. They will be left open to heal by secondary intention. Bilateral mammogram on 01-04-22 BIRAD 2. 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 ducts Social history: Nicotine: Half a pack per day for 22 years Alcohol: Negative Drugs: Negative - Constitutional Constitutional: Denies chills, Denies fever - EENT Eyes: denies blurred vision, denies pain Ears: deny: decreased hearing, tinnitus Ears, nose, mouth and throat: Denies headache, Denies sore throat - Breasts Breasts: bilateral: as per HPI - Cardiovascular Cardiovascular: Denies chest pain, Denies shortness of breath - Respiratory Respiratory: Denies cough, - Gastrointestinal Gastrointestinal: Reports diarrhea, Denies abdominal pain, Denies nausea, Denies vomiting - Genitourinary (Female) Genitourinary: Denies dysuria, Denies hematuria - Menstruation Menstruation: Reports period normal - Musculoskeletal Musculoskeletal: Denies myalgias - Integumentary Integumentary: Denies pruritus, Denies rash - Neurological Neurological: Reports numbness, Denies weakness - Psychiatric Psychiatric: Denies anxiety, Denies depression - Endocrine Endocrine: Denies fatigue, Denies weight change - Hematologic/Lymphatic Comment: none - Allergic/Immunologic Allergic/Immunologic: Reports seasonal allergies Past Medical History Past Medical History: Thyroid Disorder Additional Past Medical History / Comment(s): parietal stones 10/2017; History of Any Multi-Drug Resistant Organisms: None Reported Past Surgical History: Section, Cholecystectomy, Tubal Ligation Additional Past Surgical History / Comment(s): section 12/21/2014 & 10/02/2016; ectopic 02/2013; Past Anesthesia/Blood Transfusion Reactions: No Reported Reaction Additional Past Anesthesia/Blood Transfusion Reaction / Comment(s): No issues, has had blood transfusion previously; Past Psychological History: No Psychological Hx Reported Smoking Status: Current every day smoker Past Alcohol Use History: None Reported Past Drug Use History: None Reported Additional Drug Use History / Comment(s): smokes 1/2 ppd per pt Objective - Constitutional General appearance: Present: cooperative - EENT Eyes: Present: EOMI ENT: Present: hearing grossly normal - Neck Neck: Present: normal ROM - Respiratory Respiratory: bilateral: CTA - Cardiovascular Rhythm: regular Heart sounds: normal: S1, S2 - Gastrointestinal General gastrointestinal: Present: soft - Musculoskeletal Musculoskeletal: Present: gait normal - Psychiatric Psychiatric: Present: A&O x's 3, appropriate affect, intact judgment & insight - Additional findings Additional findings: Breast Exam: BRA: 4X sports bra inspection: bilateral grade 2/3 ptosis/ resolvederythema 3 o'clock position periareolar region right breast at site of prior excision of epidermal inclusion cyst Palpation: Breasts: In sitting position no dominant masses or nodules of concern, at the 3 o'clock position periareolar area there is some erythema and fullness which appears to be consistent with a chronic abscess Right axilla: No adenopathy of concern Left breast: In sitting position no dominant masses or not his of concern Fibrocystic changes Left axilla: No adenopathy of concern Assessment and Plan Assessment: Assessment and Plan Assessment: Impression: thyroid nodules 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 Garica
[2022-05-18 13:56] VITALS: BP 138/87; PULSE 85; RESP 16; TEMP 98.1
== END ==
LOC: WWCWWP 11:57
PROVIDERS: ATTEND Surgery
DX: N61.1 Abscess of the breast and nipple (principal); E04.2 Nontoxic multinodular goiter; K11.5 Sialolithiasis; F17.200 Nicotine dependence, unspecified, uncomplicated

== ENCOUNTER 2022-05-22 07:20 | Day surgery (SDC) | payer OTHER ==
[2022-05-17 17:38] VITALS: BMI 50.3
[~2022-05-22 07:20] MED LIST changes: +DEXAMETHASONE SOD PHOSPHATE 4 MG/ML 1 ML VIAL IV ONE; +HYDROmorphone 0.5 MG/0.5 ML SYRINGE IVP PRN; +LIDOCAINE 1% (10MG/ML) FOR IV START INTRADERMA PRN; +MIDAZOLAM 2 MG/2 ML VIAL IV PRN; +ONDANSETRON 4 MG/2 ML VIAL IVP ONE
[2022-05-22 07:53] VITALS: RESP 20
[2022-05-22] MEDS: LACTATED RINGERS 1,000 ML IV SCH ×2 (08:06→08:34)
[2022-05-22] MEDS ORDERED: ONDANSETRON 4 MG/2 ML VIAL ONE (08:07)
[2022-05-22] MEDS ORDERED: SUCCINYLCHOLINE CHLORIDE 200 MG/10 ML VIAL IV ONE (08:24)
[2022-05-22] MEDS ORDERED: LIDOCAINE 2% INJ 20 MG/ML (2 ML VIAL) ONE (08:24)
[2022-05-22] MEDS ORDERED: PROPOFOL 10 MG/ML 20 ML VIAL IV ONE (08:24)
[2022-05-22] MEDS ORDERED: fentaNYL (PF) 50 MCG/ML 2 ML AMP ONE (08:24)
[2022-05-22] MEDS ORDERED: ROCURONIUM 10 MG/ML (5 ML VIAL) IV ONE (08:24)
[2022-05-22] MEDS ORDERED: MIDAZOLAM 2 MG/2 ML VIAL ONE (08:24)
[2022-05-22] MEDS ORDERED: LIDOCAINE 0.5% (PF) 5 MG/ML (50 ML SDV) SQ ONE (08:59)
--- NOTE | 2022-05-22 09:08 | P.OP ---
Date of Procedure: 05/22/22 Preoperative Diagnosis: chronic abscess right breast periareolar area Postoperative Diagnosis: Same Procedure(s) Performed: Wide excision and curettage chronic abscess area right breast Anesthesia: MAGY Surgeon: Francesca Galindo Estimated Blood Loss (ml): 2 IV fluids (ml): 300 Pathology: other (Breast tissue/abscess cavity chronic inflammation) Condition: stable Disposition: same day Indications for Procedure: Chronic abscess right breast periareolar area 3:00 Operative Findings: Inflammatory tissue/breast tissue Description of Procedure: The patient was brought to the operating room and following induction of anesthesia the right breast was prepped and draped in a sterile fashion. Wide excision of the area of chronic abscess tract was performed. This was in the 3 o'clock position of the right periareolar region. This was carried through the skin and subcutaneous tissue into the area of the parenchyma of the breast. The tissue appeared to be chronically inflamed. The wound was well irrigated. The size was approximately 1 cm. The patient tolerated procedure in stable condition. All instrument and sponge counts were correct at the end of the case.
--- NOTE | 2022-05-22 09:23 | P.DS ---
Providers Attending physician: Francesca Galindo Primary care physician: Jayme Garcia Plan - Discharge Summary Discharge Rx Participant: No New Discharge Prescriptions: No Action Multivitamins, Thera [Multivitamin] 1 tab PO HS HYDROcodone/APAP 5-325MG [Dannemora 5] 1 - 2 each PO Q4H PRN #10 tab PRN Reason: Pain Diclofenac Sodium [Voltaren] 50 mg PO TID Discharge Medication List Multivitamins, Thera [Multivitamin] 1 tab PO HS 07/20/20 [History] HYDROcodone/APAP 5-325MG [Dannemora 5] 1 - 2 each PO Q4H PRN #10 tab 05/18/22 [Rx] Diclofenac Sodium [Voltaren] 50 mg PO TID 05/22/22 [History] Follow up Appointment(s)/Referral(s): Francesca Galindo MD [STAFF PHYSICIAN] - 1 Week Activity/Diet/Wound Care/Special Instructions: teach patient wound care and packing do not drive for 24 hours from discharge or if taking narcotic pain medicine may shower after 48 hours Discharge Disposition: HOME WITH HOME HEALTH SERVICES
[2022-05-22 09:28] VITALS: TEMP 97.2
[2022-05-22 10:24] VITALS: BP 146/92; PULSE 77
== END 2022-05-22 10:58 | disposition home health service (06) ==
LOC: OR 07:20
PROVIDERS: ATTEND Surgery
DX: N61.1 Abscess of the breast and nipple (principal)
CPT/HCPCS: 19301; 81025; J2250; J0330; J1100; J0690; J2405; J2001 ×2; J3010; J2704; J1644; 88304

== ENCOUNTER → 2022-05-31 | Outpatient (CLI) | payer OTHER ==
[2022-05-31 12:50] VITALS: BP 177/110; PULSE 97; RESP 17; TEMP 97.8
--- NOTE | 2022-05-31 13:05 | P.PN ---
Progress Note - Text Progress Note Date: 05/31/22 Dali is a 41-year-old white female status post wide excision of a chronic abscess site in the right breast on . The wound is being packed by the patient and her sister. She does not have any complaints at this time. Physical examination: Lungs: Clear Heart: Regular rate and rhythm Packing right breast wound changed, site is clean and dry Plan: Continue present therapy Follow-up in 1 month CC: Dr. Jayme Garcia
== END ==
LOC: WWCWWP 12:40
PROVIDERS: ATTEND Surgery
DX: N61.1 Abscess of the breast and nipple (principal); F17.200 Nicotine dependence, unspecified, uncomplicated

== ENCOUNTER → 2023-01-08 | Outpatient (CLI) | payer OTHER ==
--- NOTE | 2023-01-09 16:46 | MM ---
Reason for Exam: Screening (asymptomatic). Last screening mammogram was performed 12 month(s) ago. Patient History: Menarche at age 13. First Full-Term at age 34. Late child-bearing (after 30). Premenopausal. Maternal grandmother had breast cancer. Last menstrual period: 12/11/2022 Risk Values: Dahlia 5 year model risk: 0.9%. NCI Lifetime model risk: 13.4%. Prior Study Comparison: 12/21/2018 Screening Mammogram, Unknown. 09/08/2020 Bilateral Diagnostic Mammogram, [facility]. 01/04/2022 Bilateral MG screening mammo w CAD, [facility]. Tissue Density: The breast tissue is almost entirely fat. Findings: Analyzed By CAD. Pattern appears stable. Intermammillary lymph node appears to be present on the right. No significant interval changes are evident. No suspicious groups of microcalcifications, spiculated or lobular masses, architectural distortion or other secondary signs of malignancy are mammographically apparent. Overall Assessment: Benign, BI-RAD 2 Management: Screening Mammogram of both breasts in 1 year. A negative mammogram report should not preclude additional follow up of suspicious palpable abnormalities. Patient should continue monthly self breast exam. A clinical breast exam by your physician is recommended on an annual basis and results should be correlated with mammographic findings. Electronically signed and approved by: Chandan Perez D.O. Radiologis
== END | disposition home or self-care (01) ==
LOC: RADMAMWWP 15:44
PROVIDERS: ATTEND Surgery
DX: Z12.31 Encounter for screening mammogram for malignant neoplasm of breast (principal); Z80.3 Family history of malignant neoplasm of breast
CPT/HCPCS: 77067

== ENCOUNTER → 2023-01-17 | Outpatient (CLI) | payer OTHER ==
--- NOTE | 2023-01-17 16:34 | P.PN ---
Progress Note - Text Progress Note Date: 01/17/23 Chronic abscess right breast Dali is a 42 year old female status post I&D of right breast chronic abscess 05-22-22. The area where the abscess was excised has a scab on it at this time and will intermittently drain. It did heal by secondary intention. The patient is not complaining of any fever or chills. She doesn't have any other abscesses in her breast. Bilateral mammogram on 01-08-23 BIRAD 2. Examination on 9822 revealed some fullness at the site and there was some concern about this being a chronic abscess. 11 blade was used to open the area. Cultures were obtained of the area on 9822 showed no PMNs and no organisms. Examination: Right breast periareolar site at this time has a scab over where it was drained there is no fluctuance there is minimal erythema at the site Impression: Chronic changes related to abscess at the right periareolar region which seems to have resolved Plan: Bilateral mammogram in 1 year with physician exam at that time Patient to follow up sooner any questions or concerns CC: Dr. Jayme Garcia
== END ==
LOC: WWCWWP 16:26
PROVIDERS: ATTEND Surgery
DX: Z04.89 Encounter for examination and observation for other specified reasons (principal); F17.200 Nicotine dependence, unspecified, uncomplicated

== ENCOUNTER → 2023-02-13 | Outpatient (CLI) | payer OTHER ==
--- NOTE | 2023-02-13 13:12 | US ---
EXAMINATION TYPE: US thyroid st tissue head/neck DATE OF EXAM: 02/13/2023 COMPARISON: US 2021 CLINICAL INDICATION: Female, 42 years old with history of E04.1 NONTOXIC SINGLE THYROID NODULE; GLAND SIZE: Right Lobe: 5.5 x 1.8 x 2.1 cm Overall Parenchyma: homogenous Left Lobe: 5.1 x 1.2 x 1.5 cm Overall Parenchyma: homogeneous Isthmus Thickness: 0.4 cm NODULES RIGHT: # of nodules measured on right: 1. 1.9 X 1.3 x 1.9 cm, lower mid, solid or almost completely solid, isoechoic nodule, which is wide r than tall, with ill-defined margins, without echogenic foci. Prior size: 1.9 x 1.2 x 1.7 cm. 2. multiple subcentimeter calcified nodules seen LEFT: # of nodules measured on left: 0 ISTHMUS: # of nodules measured in the isthmus: 0 Bilateral neck scanned, right neck - 3.5 x 1.3 x 2.8cm lymph node, left neck - 3.7 x 1.2 x 1.3cm lymp h node. IMPRESSION: TR3. Mildly Suspicious: FNA if ? 2.5 cm; Follow if ? 1.5 cm at 1, 3, and 5 y 2017 ACR TI-RADS LEVEL: *Highest TI-RADS level nodule reported
== END | disposition home or self-care (01) ==
LOC: RADUSWWP 12:10
PROVIDERS: ATTEND Family Medicine
DX: E04.2 Nontoxic multinodular goiter (principal)
CPT/HCPCS: 76536

== ENCOUNTER → 2024-01-13 | Outpatient (CLI) | payer OTHER ==
--- NOTE | 2024-01-15 13:42 | MM ---
Reason for Exam: Screening (asymptomatic). Last screening mammogram was performed 12 month(s) ago. Patient History: Menarche at age 13. First Full-Term at age 34. Late child-bearing (after 30). Premenopausal. Maternal grandmother had breast cancer. Last menstrual period: 12/19/2023 Risk Values: Dahlia 5 year model risk: 1.0%. NCI Lifetime model risk: 13.2%. Prior Study Comparison: 09/08/2020 Bilateral Diagnostic Mammogram, [facility]. 01/04/2022 Bilateral MG screening mammo w CAD, [facility]. 01/08/2023 Bilateral MG screening mammo w CAD, [facility]. Tissue Density: The breasts are almost entirely fatty. Findings: Analyzed By CAD. There is no suspicious group of microcalcifications or new suspicious mass in either breast. Overall Assessment: Benign, BI-RAD 2 Management: Screening Mammogram of both breasts in 1 year. . Patient should continue monthly self-breast exams. A clinical breast exam by your physician is recommended on an annual basis. This exam should not preclude additional follow-up of suspicious palpable abnormalities. Note on Dahlia scores and lifetime risk: 1. A Dahlia score greater than 3% is considered moderate risk. If this is the case, consider specialist referral to assess eligibility for a risk reducing agent. 2. If overall lifetime risk for the development of breast cancer is 20% or higher, the patient may qualify for future screening with alternating mammogram and breast MRI. Electronically signed and approved by: Sang Jonas M.D. Radiologis
== END | disposition home or self-care (01) ==
LOC: RADMAMWWP 16:33
PROVIDERS: ATTEND Surgery
DX: Z12.31 Encounter for screening mammogram for malignant neoplasm of breast
CPT/HCPCS: 77067

== ENCOUNTER → 2024-01-13 | Outpatient (CLI) | payer OTHER ==
[2024-01-13 15:24] LABS: Basophils # (A) 0.06 X 10*3/uL (0.00-0.10); Basophils % (A) 0.6 %; Eosinophils # (A) 0.08 X 10*3/uL (0.04-0.35); Eosinophils % (A) 0.8 %; HCT 39.8 % (37.2-46.3); Lymphocytes # (A) 2.47 X 10*3/uL (0.90-5.00); Lymphocytes % (A) 25.2 %; MCH 27.5 pg (27.0-32.0); MCHC 32.7 g/dL (32.0-37.0); MCV 84.3 FL (80.0-97.0); Mean Platelet Volume 9.4 FL (9.5-12.2); Monocytes # (A) 0.58 X 10*3/uL (0.20-1.00); Monocytes % (A) 5.9 %; NRBC Per 100 WBC 0 X 10*3/uL (0.00-0.01); Neutrophils % (A) 67.3 %; Platelet Count 374 X 10*3/uL (140-440); RBC 4.72 X 10*6/uL (4.10-5.20); RDW 13.4 % (11.5-14.5); WBC 9.81 X 10*3/uL (4.50-10.00)
[2024-01-13 15:51] LABS: ALT 8 U/L (8-44); AST 17 U/L (13-35); Albumin 3.7 g/dL (3.8-4.9); Albumin/Globulin Ratio 1.37 Ratio (1.60-3.17); Alkaline Phosphatase 63 U/L (41-126); Blood Urea Nitrogen 12.4 mg/dL (9.0-27.0); Calcium 9.2 mg/dL (8.7-10.3); Carbon Dioxide 27.5 mmol/L (21.6-31.8); Chloride 103 mmol/L (96-109); Chol/HDL Ratio 4.07 Ratio; Globulin 2.7 g/dL (1.6-3.3); Glucose 116 mg/dL (70-110); LDL Cholesterol,Calculated 88.9 mg/dL (0.0-131.0); Potassium 3.6 mmol/L (3.5-5.5); Sodium 142 mmol/L (135-145); Total Bilirubin 0.2 mg/dL (0.3-1.2); Total Protein 6.4 g/dL (6.2-8.2)
== END | disposition home or self-care (01) ==
LOC: LABWHC1 08:15
PROVIDERS: ATTEND Nurse Practitioner Family
DX: E78.5 Hyperlipidemia, unspecified (principal); R73.03 Prediabetes
CPT/HCPCS: 36415; 80053; 80061; 83036; 84443; 85025

== ENCOUNTER → 2024-01-16 | Outpatient (CLI) | payer OTHER ==
[2024-01-16 14:01] VITALS: BP 169/98; PULSE 93; RESP 17; TEMP 98.3
--- NOTE | 2024-01-16 14:08 | P.PN ---
Subjective Progress Note Date: 01/16/24 Principal diagnosis: chronic right breast abscess 01/11/23 Principal diagnosis: Chronic abscess right breast Dali is a 42 year old female status post I&D of right breast chronic abscess 05-22-22. The area where the abscess was excised has a scab on it at this time and will intermittently drained. It did heal by secondary intention. The patient is not complaining of any fever or chills. She doesn't have any other abscesses in her breast. Bilateral mammogram on 01-08-23 BIRAD 2. 01-16-24 On her visit of 01-11-23 an abcess in the right periarrolar area was unroofed bilateral mammogram on 01-12-24 reviewed and personally discussed with Dr. Sadnerson The abcesses right periareolar area have resolved over the past 4 months, no new nodules of concern. Smoking approximately 1 year ago. Since that time the periareolar abscesses have healed and resolved. 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 ducts HTN Social history: Nicotine: Half a pack per day for 22 years; but stopped about 1 year ago Alcohol: Negative Drugs: Negative - Constitutional Constitutional: Denies chills, Denies fever - EENT Eyes: denies blurred vision, denies pain Ears: deny: decreased hearing, tinnitus Ears, nose, mouth and throat: Denies headache, Denies sore throat - Breasts Breasts: bilateral: as per HPI - Cardiovascular Cardiovascular: Denies chest pain, Denies shortness of breath - Respiratory Respiratory: Denies cough, - Gastrointestinal Gastrointestinal: Reports diarrhea, Denies abdominal pain, Denies nausea, Denies vomiting - Genitourinary (Female) Genitourinary: Denies dysuria, Denies hematuria - Menstruation Menstruation: Reports period normal - Musculoskeletal Musculoskeletal: Denies myalgias - Integumentary Integumentary: Denies pruritus, Denies rash - Neurological Neurological: Reports numbness, Denies weakness - Psychiatric Psychiatric: Denies anxiety, Denies depression - Endocrine Endocrine: Denies fatigue, Denies weight change - Hematologic/Lymphatic Comment: none - Allergic/Immunologic Allergic/Immunologic: Reports seasonal allergies Past Medical History Past Medical History: Thyroid Disorder Additional Past Medical History / Comment(s): parietal stones 10/2017; History of Any Multi-Drug Resistant Organisms: None Reported Past Surgical History: Section, Cholecystectomy, Tubal Ligation Additional Past Surgical History / Comment(s): section 12/21/2014 & 10/02/2016; ectopic 02/2013; Past Anesthesia/Blood Transfusion Reactions: No Reported Reaction Additional Past Anesthesia/Blood Transfusion Reaction / Comment(s): No issues, has had blood transfusion previously; Past Psychological History: No Psychological Hx Reported Smoking Status: Current every day smoker Past Alcohol Use History: None Reported Past Drug Use History: None Reported Additional Drug Use History / Comment(s): smokes 1/2 ppd per pt Objective - Constitutional General appearance: Present: cooperative - EENT Eyes: Present: EOMI ENT: Present: hearing grossly normal - Neck Neck: Present: normal ROM - Respiratory Respiratory: bilateral: CTA - Cardiovascular Heart sounds: normal: S1, S2 - Integumentary Integumentary: Present: normal turgor - Musculoskeletal Musculoskeletal: Present: gait normal - Psychiatric Psychiatric: Present: A&O x's 3, appropriate affect, intact judgment & insight - Additional findings Additional findings: Breast Exam: BRA: 4X sports bra inspection: bilateral grade 2/3 ptosis/no evidence of any active infection Palpation: right Breasts: multi-Positional exam no dominant masses or nodules of concern, no periareolar abscesses on today's exam, there are some pustules in the inferior aspect of the breast which are not actively infected Right axilla: No adenopathy of concern Left breast: Multi positional exam no dominant masses or nodules of concern, some pustules on the inferior aspect of the breast which are not actively infected Left axilla: No adenopathy of concern Assessment and Plan Assessment: Impression: thyroid nodules stones in salivary ducts chronic abscess right periareolar area Mammogram from personally reviewed and discussed with Dr. Rosenberg, benign BI-RADS 2 Plan: Bilateral mammogram in 1 year with physician exam at that time Patient to follow-up sooner any questions or concerns CC: Dr. Jayme Garcia
== END ==
LOC: WWCWWP 13:42
PROVIDERS: ATTEND Surgery
DX: R92.8 Other abnormal and inconclusive findings on diagnostic imaging of breast (principal); N61.1 Abscess of the breast and nipple; E07.9 Disorder of thyroid, unspecified; K11.5 Sialolithiasis; F17.210 Nicotine dependence, cigarettes, uncomplicated; Z80.3 Family history of malignant neoplasm of breast

== ENCOUNTER → 2024-02-13 | Outpatient (CLI) | payer OTHER ==
--- NOTE | 2024-02-13 11:18 | XR ---
EXAMINATION TYPE: XR foot complete RT DATE OF EXAM: 02/13/2024 COMPARISON: NONE HISTORY: 43-year-old female M79.671 pain R foot TECHNIQUE: 3 views FINDINGS: There is some degenerative spurring at the fourth-fifth intermetatarsal joint. Additional d egenerative spurring along the dorsal midfoot along the TMT joint articulations. There is a small nargis ntar heel spur present. No acute fracture, subluxation, dislocation. IMPRESSION: Some scattered midfoot osteoarthritic change. Small plantar heel spur. No acute osseous a bnormality seen. [facility], , 02/13/2024 11:16 AM
== END | disposition home or self-care (01) ==
LOC: RADXRMAIN 08:30
PROVIDERS: ATTEND Family Medicine